=== PATIENT | female | born 2000 | race Caucasian/White ===

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

== ENCOUNTER 2020-07-31 06:22 | Day surgery (SDC) | payer MEDICAID ==
[2020-07-31] MEDS ORDERED: VIBRAMYCIN 100 MG*** 100 MG in Dextrose 5%/Water IV Soln. 100ML PLUS BAG 100 ML IV SCH (07:00)
[2020-07-31] MEDS ORDERED: Lactated Ringers 1,000 ML IV SCH (07:00)
[2020-07-31] MEDS ORDERED: DIPRIVAN 200 MG/20 ML IV ONE (07:00)
[2020-07-31] MEDS ORDERED: SUBLIMAZE 100 MCG/2 ML ONE (07:01)
[2020-07-31] MEDS ORDERED: Versed 2 MG/2 ML Injection ONE ×2 (07:01→07:10)
[2020-07-31] MEDS ORDERED: Zofran 4 MG/2 ML VIAL ONE (07:02)
[2020-07-31] MEDS ORDERED: Decadron 4 MG INJ ONE (07:02)
[2020-07-31] MEDS ORDERED: Versed 2 MG/2 ML Injection IV ONE (07:12)
[2020-07-31] MEDS ORDERED: Lactated Ringers 1,000 ML IV ONE (07:44)
[2020-07-31] MEDS ORDERED: SODIUM CHLORIDE MINI IV ONE (07:45)
[2020-07-31] MEDS ORDERED: TRANEXAMIC ACID IV ONE (07:45)
[2020-07-31 09:01] VITALS: BP 123/63; PULSE 71; O2SAT 99
--- NOTE | 2020-08-04 10:30 | OP ---
SURGERY DATE/TIME: 07/31/2020 0719 PREOPERATIVE DIAGNOSIS: Suspected molar at approximately 11 weeks gestation by dates. POSTOPERATIVE DIAGNOSIS: Suspected molar at approximately 11 weeks gestation by dates. PROCEDURE: Suction D&C. SURGEON: Angelo Bell D.O. LAUNDRY WORKER: Sharon Rocha, surgical orderly. ANESTHESIA: General. ESTIMATED BLOOD LOSS: Minimal. COMPLICATIONS: None. INDICATIONS: The risks, benefits, indications and alternatives of the procedure were reviewed with the patient prior to procedure. The patient understood the risk of infection, bleeding, bowel injury, bladder injury, ureteral injury, uterine perforation, thromboembolic disorder, pelvic infection, vaginal bleeding that can be associated with this procedure however desires to have this procedure as a possible means to alleviate her current medical condition. DESCRIPTION OF PROCEDURE AND FINDINGS: At this time the patient is taken to the operating room, given general sedation, placed in the dorsal lithotomy position, prepped and draped in the usual sterile fashion. A weighted speculum is then placed in the patient's vagina and the anterior lip of the cervix is grasped with a single tooth tenaculum. Endocervical dilators were advanced through the endocervical canal as a means to dilate the cervix. A #7 curved suction Vacurette was then placed into the fundus of the uterus where the suction machine was turned on retrieving the products of conception without complication. After retrieval of the uterine content the suction machine was turned off. It was removed from the uterine cavity where a curette was then subsequently placed into the uterine fundus where curettage was performed in all quadrants of the uterus retrieving a mild amount of tissue at this time. The suction Vacurette was then placed one last time in the fundus of the uterus where the suction machine was turned on with minimal tissue at this time. From this point all instruments were then removed from the patient's vaginal region. There was minimal bleeding noted from the cervix at this time. The patient was then taken out of the dorsal lithotomy position, was taken out of anesthesia and was then taken to the recovery room in stable condition. All instruments and laps were accounted for x2.
== END 2020-07-31 09:10 | disposition home or self-care (01) ==
LOC: SDC 06:22 → EDSTATUS 17:44
PROVIDERS: ATTEND Obstetrics & Gynecology
DX: O02.0 Blighted ovum and nonhydatidiform mole (principal)
CPT/HCPCS: J1100; J2250; J2405; J2704; J3010

== ENCOUNTER 2022-02-03 18:45 | Emergency (ER) | payer MEDICAID ==
--- NOTE | 2022-02-03 18:49 | ERPHSYRPT ---
- History of Present Illness Time Seen by Provider: 02/03/22 18:49 Historian: patient, family Exam Limitations: no limitations Physician History: This is a 21-year-old white female that presents with central, substernal nonradiating heavy chest pressure without radiation and no associated shortness of breath that began approximately 3 hours prior to arrival. She has anxiety issues as well as borderline personality disorder. She took her buspirone without effect and was concerned that she may have a heart issue. Timing/Duration: today Activities at Onset: none Quality: pressure Location: substernal, central Chest Pain Radiation: no radiation Severity of Pain-Max: moderate Severity of Pain-Current: mild Modifying Factors: Improves With: nothing Associated Symptoms: denies symptoms Prior Chest Pain/Cardiac Workup: no prior chest pain, no prior cardiac workup, non-cardiac Nitro Today/Relief: no nitro taken today Aspirin Treatment Today: no aspirin today Allergies/Adverse Reactions: amoxicillin Allergy (Verified 02/03/22 18:46) Hives ciprofloxacin Allergy (Verified 02/03/22 18:46) Hives peanut Allergy (Verified 02/03/22 18:46) Hives sulfamethoxazole [From Bactrim] Allergy (Verified 02/03/22 18:46) Hives trimethoprim [From Bactrim] Allergy (Verified 02/03/22 18:46) Hives Home Medications: Bupropion HCl 150 mg Sr [Wellbutrin SR 150 MG] 1 tab PO DAILY 02/03/22 [History] Buspirone HCl 1 tab PO TID 02/03/22 [History] norgestimate-ethinyl estradioL [Tri-Sprintec Tablet] 1 tab PO DAILY 02/03/22 [History] Hx Tetanus, Diphtheria Vaccination/Date Given: No Hx Influenza Vaccination/Date Given: No Hx Pneumococcal Vaccination/Date Given: No Travel Risk - International Travel Have you traveled outside of the country in past 3 weeks: No - Coronavirus Screening Are you exhibiting any of the following symptoms?: No Close contact with a COVID-19 positive Pt in past 14-21 Days: No - Review of Systems Constitutional: No Symptoms Eyes: No Symptoms Ears, Nose, & Throat: No Symptoms Respiratory: No Symptoms Cardiac: Chest Pain Abdominal/Gastrointestinal: No Symptoms Genitourinary Symptoms: No Symptoms Musculoskeletal: No Symptoms Skin: No Symptoms Neurological: No Symptoms Psychological: No Symptoms Endocrine: No Symptoms Hematologic/Lymphatic: No Symptoms Immunological/Allergic: No Symptoms All Other Systems: Reviewed and Negative - Past Medical History Pertinent Past Medical History: Yes Neurological History: No Pertinent History ENT History: No Pertinent History Cardiac History: No Pertinent History Respiratory History: No Pertinent History Endocrine Medical History: No Pertinent History Musculoskeletal History: No Pertinent History GI Medical History: No Pertinent History History: No Pertinent History Psycho-Social History: Anxiety, Depression Female Reproductive Disorders: No Pertinent History Other Medical History: boarderline personality disorder - Past Surgical History Past Surgical History: No Neuro Surgical History: No Pertinent History Cardiac: No Pertinent History Respiratory: No Pertinent History Gastrointestinal: No Pertinent History Genitourinary: No Pertinent History Musculoskeletal: No Pertinent History Female Surgical History: No Pertinent History Other Surgical History: Molar blighted ovum - Social History Smoking Status: Never smoker How long have you smoked: 1 year Exposure to second hand smoke: No Alcohol Use: None Drug Use: none Patient Lives Alone: Yes Significant Family History: no pertinent family hx - Nursing Vital Signs Nursing Vital Signs: Initial Vital Signs Temperature 98.7 F 02/03/22 18:48 Pulse Rate 96 H 02/03/22 18:48 Respiratory Rate 20 02/03/22 18:48 Blood Pressure 105/89 02/03/22 18:48 O2 Sat by Pulse Oximetry 99 02/03/22 18:48 Pain Scale Pain Intensity 7 - Physical Exam General Appearance: no apparent distress, alert, anxiety Eye Exam: PERRL/EOMI, eyes nml inspection Ears, Nose, Throat Exam: normal ENT inspection, moist mucous membranes Neck Exam: normal inspection, non-tender, supple, full range of motion Respiratory Exam: normal breath sounds, lungs clear, airway intact, No chest tenderness, No respiratory distress Cardiovascular Exam: regular rate/rhythm, normal heart sounds, normal peripheral pulses Gastrointestinal/Abdomen Exam: soft, normal bowel sounds, No tenderness Pelvic Exam: not done Rectal Exam: not done Back Exam: normal inspection, normal range of motion, No CVA tenderness, No vertebral tenderness Extremity Exam: normal inspection, normal range of motion, pelvis stable Neurologic Exam: alert, oriented x 3, cooperative, hand ii cutter II-XII nml as tested, normal mood/affect, nml cerebellar function, nml station & gait, sensation nml Skin Exam: normal color, warm, dry Lymphatic Exam: No adenopathy SpO2 Interpretation: normal - Course Nursing assessment & vital signs reviewed: Yes EKG Interpreted by Me: RATE (72), Sinus Rhythm, Right [place] Deviation, NORMAL INTERVALS, NORMAL QRS, NORMAL ST-T, Other (No acute ischemic changes.) Ordered Tests: Active Orders 24 hr Category Date Time Status Box Blank Machine Feeder STAT Care 02/03/22 19:02 Active EKG-ER Only STAT Care 02/03/22 19:01 Active IV Insertion STAT Care 02/03/22 19:30 Active Pulse Oximetry (ED) STAT Care 02/03/22 19:01 Active CHEST 1 VIEW (PORTABLE) Stat Exams 02/03/22 19:01 Taken CBC W DIFF Stat Lab 02/03/22 19:00 Completed CMP Stat Lab 02/03/22 19:00 Completed D-DIMER QUANTITATIVE Stat Lab 02/03/22 19:00 Completed HCG,QUALITATIVE URINE Stat Lab 02/03/22 19:44 Completed TROPONIN Q3H Lab 02/03/22 19:00 Completed TROPONIN Q3H Lab 02/03/22 22:15 Ordered TROPONIN Q3H Lab 02/04/22 01:15 Ordered TROPONIN Q3H Lab 02/04/22 04:15 Ordered TROPONIN Q3H Lab 02/04/22 07:15 Ordered Urine Triage Profile Stat Lab 02/03/22 19:44 Completed Lab/Rad Data: Laboratory Result Diagrams 02/03/22 19:00 02/03/22 19:00 Laboratory Results 02/03/22 02/03/22 02/03/22 Range/Units 19:44 19:44 19:00 WBC (4.0-10.5) x10^3/uL RBC (4.1-5.4) x10^6/uL Hgb (12.0-16.0) g/dL Hct (35-47) % MCV (78-100) fL MCH (26-32) pg MCHC (32-36) g/dL RDW (11.5-14.0) % Plt Count (150-450) x10^3/uL MPV (7.5-11.0) fL Gran % (36.0-66.0) % Immature Gran % (Auto) (0.00-0.4) % Nucleat RBC Rel Count (0.00-0.1) % Eos # (Auto) (0-0.5) x10^3/uL Immature Gran # (Auto) (0.00-0.03) x10^3u/L Absolute Lymphs (auto) (1.0-4.6) x10^3/uL Absolute Monos (auto) (0.0-1.3) x10^3/uL Absolute Nucleated RBC (0.00-0.01) x10^3u/L Lymphocytes % (24.0-44.0) % Monocytes % (0.0-12.0) % Eosinophils % (0.00-5.0) % Basophils % (0.0-0.4) % Absolute Granulocytes (1.4-6.9) x10^3/uL Basophils # (0-0.4) x10^3/uL D-Dimer (0.0-0.50) mg/L Sodium (137-145) mmol/L Potassium (3.5-5.1) mmol/L Chloride (98-107) mmol/L Carbon Dioxide (22-30) mmol/L Anion Gap (5-15) MEQ/L BUN (7-17) mg/dL Creatinine (0.52-1.04) mg/dL Estimated GFR ML/MIN Glucose (74-106) mg/dL Calcium (8.4-10.2) mg/dL Total Bilirubin (0.2-1.3) mg/dL AST (14-36) U/L ALT (0-35) U/L Alkaline Phosphatase (38-126) U/L Troponin I < 0.012 (0.000-0.034) ng/mL Serum Total Protein (6.3-8.2) g/dL Albumin (3.5-5.0) g/dL Urine HCG, Qual NEGATIVE (Negative) Urine Opiates Level NEGATIVE (NEGATIVE) Ur Methadone NEGATIVE (NEGATIVE) Urine Barbiturates NEGATIVE (NEGATIVE) Ur Phencyclidine (PCP) NEGATIVE (NEGATIVE) Urine Amphetamine NEGATIVE (NEGATIVE) U Benzodiazepine Level NEGATIVE (NEGATIVE) Urine Cocaine NEGATIVE (NEGATIVE) Urine Marijuana (THC) NEGATIVE (NEGATIVE) 02/03/22 02/03/22 02/03/22 Range/Units 19:00 19:00 19:00 WBC 7.4 (4.0-10.5) x10^3/uL RBC 4.48 (4.1-5.4) x10^6/uL Hgb 14.4 (12.0-16.0) g/dL Hct 42.6 (35-47) % MCV 95.1 (78-100) fL MCH 32.1 H (26-32) pg MCHC 33.8 (32-36) g/dL RDW 12.4 (11.5-14.0) % Plt Count 387 (150-450) x10^3/uL MPV 9.5 (7.5-11.0) fL Gran % 60.2 (36.0-66.0) % Immature Gran % (Auto) 0.4 (0.00-0.4) % Nucleat RBC Rel Count 0.0 (0.00-0.1) % Eos # (Auto) 0.19 (0-0.5) x10^3/uL Immature Gran # (Auto) 0.03 (0.00-0.03) x10^3u/L Absolute Lymphs (auto) 2.01 (1.0-4.6) x10^3/uL Absolute Monos (auto) 0.68 (0.0-1.3) x10^3/uL Absolute Nucleated RBC 0.00 (0.00-0.01) x10^3u/L Lymphocytes % 27.1 (24.0-44.0) % Monocytes % 9.2 (0.0-12.0) % Eosinophils % 2.6 (0.00-5.0) % Basophils % 0.5 (0.0-0.4) % Absolute Granulocytes 4.48 (1.4-6.9) x10^3/uL Basophils # 0.04 (0-0.4) x10^3/uL D-Dimer 0.48 (0.0-0.50) mg/L Sodium 140 (137-145) mmol/L Potassium 4.0 (3.5-5.1) mmol/L Chloride 106 (98-107) mmol/L Carbon Dioxide 21 L (22-30) mmol/L Anion Gap 16.1 H (5-15) MEQ/L BUN 9 (7-17) mg/dL Creatinine 0.68 (0.52-1.04) mg/dL Estimated GFR > 60.0 ML/MIN Glucose 77 (74-106) mg/dL Calcium 9.7 (8.4-10.2) mg/dL Total Bilirubin 0.50 (0.2-1.3) mg/dL AST 24 (14-36) U/L ALT 15 (0-35) U/L Alkaline Phosphatase 78 (38-126) U/L Troponin I (0.000-0.034) ng/mL Serum Total Protein 8.1 (6.3-8.2) g/dL Albumin 5.0 (3.5-5.0) g/dL Urine HCG, Qual (Negative) Urine Opiates Level (NEGATIVE) Ur Methadone (NEGATIVE) Urine Barbiturates (NEGATIVE) Ur Phencyclidine (PCP) (NEGATIVE) Urine Amphetamine (NEGATIVE) U Benzodiazepine Level (NEGATIVE) Urine Cocaine (NEGATIVE) Urine Marijuana (THC) (NEGATIVE) - Progress Progress: improved, re-examined Air Movement: good Progress Note: 02/03/22 21:07 Chest x-ray shows no acute cardiopulmonary process. Counseled pt/family regarding: lab results, diagnosis, need for follow-up, rad results - Departure Departure Disposition: Home Clinical Impression: Cardiac chest pain Condition: Stable Critical Care Time: No Referrals: PING BARNARD MD [Primary Care Provider] - Follow up/PCP as directed Additional Instructions: Follow-up with your primary care physician for further evaluation management.
[2022-02-03 19:21] LABS: Absolute Neutrophil Ct (ANC) 4.48 x10^3/uL (1.4-6.9); Basophil (Absolute #) 0.04 x10^3/uL (0-0.4); Eosinophil % 2.6 % (0.00-5.0); Eosinophil (Absolute #) 0.19 x10^3/uL (0-0.5); Hematocrit 42.6 % (35-47); Hemoglobin 14.4 g/dL (12.0-16.0); Lymphocyte (Absolute #) 2.01 x10^3/uL (1.0-4.6); Lymphocytes % 27.1 % (24.0-44.0); Mean Cell Volume 95.1 fL (78-100); Mean Corpuscular Hemoglobin 32.1 pg (26-32); Mean Corpuscular Hgb Concent. 33.8 g/dL (32-36); Mean Platelet Volume 9.5 fL (7.5-11.0); Monocyte (Absolute #) 0.68 x10^3/uL (0.0-1.3); Monocytes % 9.2 % (0.0-12.0); Neutrophil % 60.2 % (36.0-66.0); Platelet Count 387 x10^3/uL (150-450); Red Blood Count 4.48 x10^6/uL (4.1-5.4); Red Cell Distribution Width 12.4 % (11.5-14.0); White Blood Count 7.4 x10^3/uL (4.0-10.5)
[2022-02-03 20:14] LABS: Amphetamine,Urine NEGATIVE (NEGATIVE); Benzodiazepine,Urine NEGATIVE (NEGATIVE); Cocaine,Urine NEGATIVE (NEGATIVE); Methadone,Urine NEGATIVE (NEGATIVE); Opiate,Urine NEGATIVE (NEGATIVE); PCP,Urine NEGATIVE (NEGATIVE); THC,Urine NEGATIVE (NEGATIVE)
[2022-02-03 20:17] LABS: Barbiturate,Urine NEGATIVE (NEGATIVE)
[2022-02-03 20:32] LABS: ALKALINE PHOSPHATASE 78 U/L (38-126); ANION GAP 16.1 MEQ/L (5-15); BLOOD UREA NITROGEN 9 mg/dL (7-17); CHLORIDE 106 mmol/L (98-107); Calcium 9.7 mg/dL (8.4-10.2); Carbon Dioxide 21 mmol/L (22-30); Creatinine 1 0.68 mg/dL (0.52-1.04); EST GLOMERULAR FILTRATION RATE > 60.0 ML/MIN; Glucose 77 mg/dL (74-106); SGOT/AST 24 U/L (14-36); SGPT/ALT 15 U/L (0-35); SODIUM 140 mmol/L (137-145); Total Protein 8.1 g/dL (6.3-8.2)
[2022-02-03 21:17] VITALS: BP 102/67; PULSE 79; O2SAT 99
== END 2022-02-03 21:15 | disposition home or self-care (01) ==
LOC: ED 18:45
DX: R07.9 Chest pain, unspecified (principal); Z79.899 Other long term (current) drug therapy
CPT/HCPCS: 36000; 36415; 71045; 80053; 80307; 81025; 84484; 85025; 85379; 93005; 93041; 94760; 99284

== ENCOUNTER 2022-11-15 23:21 | Emergency (ER) | payer MEDICAID ==
--- NOTE | 2022-11-15 23:35 | ERPHSYRPT ---
- History of Present Illness Time Seen by Provider: 11/16/22 00:13 Source: patient Exam Limitations: no limitations Physician History: This is a 22-year-old white female patient of Dr. Barnard who presents with 3-day history of sore throat followed by 2-day history of a cough and 1 day history of left earache. Patient has no known exposure to individuals with similar symptoms. Patient denies nausea vomiting and diarrhea. Timing/Duration: worse Cough Quality/Degree: mild, dry cough Possible Cause: no prior episodes Modifying Factors: Improves With: nothing Associated Symptoms: cough, earache (Left), sore throat, No shortness of breath Allergies/Adverse Reactions: amoxicillin Allergy (Verified 11/15/22 23:50) Hives ciprofloxacin Allergy (Verified 11/15/22 23:50) Hives peach Allergy (Verified 11/15/22 23:51) Swelling of Face peanut Allergy (Verified 11/15/22 23:50) Hives sulfamethoxazole [From Bactrim] Allergy (Verified 11/15/22 23:50) Hives trimethoprim [From Bactrim] Allergy (Verified 11/15/22 23:50) Hives Hx Tetanus, Diphtheria Vaccination/Date Given: No Hx Influenza Vaccination/Date Given: No Hx Pneumococcal Vaccination/Date Given: No Travel Risk - International Travel Have you traveled outside of the country in past 3 weeks: No - Coronavirus Screening Are you exhibiting any of the following symptoms?: Yes Symptoms: Cough: New Onset Close contact with a COVID-19 positive Pt in past 14-21 Days: No - Vaccine Status Have you recieved a Covid-19 vaccination: Yes 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 - Vaccination Dates Date of 2cond Vaccination (if applicable): 2020 - Review of Systems Constitutional: No Symptoms Eyes: No Symptoms Ears, Nose, & Throat: Ear Pain (Left), Throat Pain Respiratory: Cough Cardiac: No Symptoms Abdominal/Gastrointestinal: No Symptoms Genitourinary Symptoms: No Symptoms Musculoskeletal: No Symptoms Skin: No Symptoms Neurological: No Symptoms Psychological: No Symptoms Endocrine: No Symptoms Hematologic/Lymphatic: No Symptoms Immunological/Allergic: No Symptoms All Other Systems: Reviewed and Negative - Past Medical History Pertinent Past Medical History: Yes Neurological History: No Pertinent History ENT History: No Pertinent History Cardiac History: No Pertinent History Respiratory History: No Pertinent History Endocrine Medical History: No Pertinent History Musculoskeletal History: No Pertinent History GI Medical History: No Pertinent History History: No Pertinent History Psycho-Social History: Anxiety, Depression Female Reproductive Disorders: No Pertinent History Other Medical History: boarderline personality disorder - Past Surgical History Past Surgical History: No Neuro Surgical History: No Pertinent History Cardiac: No Pertinent History Respiratory: No Pertinent History Gastrointestinal: No Pertinent History Genitourinary: No Pertinent History Musculoskeletal: No Pertinent History Female Surgical History: No Pertinent History Other Surgical History: Molar blighted ovum - Social History Smoking Status: Never smoker How long have you smoked: 1 year Exposure to second hand smoke: No Alcohol Use: None Drug Use: none Patient Lives Alone: Yes Significant Family History: no pertinent family hx - Nursing Vital Signs Nursing Vital Signs: Initial Vital Signs Temperature 97.9 F 11/15/22 23:37 Pulse Rate 62 11/15/22 23:37 Respiratory Rate 16 11/15/22 23:37 Blood Pressure 123/84 11/15/22 23:37 O2 Sat by Pulse Oximetry 98 11/15/22 23:37 Pain Scale Pain Intensity 7 - Physical Exam General Appearance: no apparent distress, alert, anxiety Eye Exam: PERRL/EOMI, eyes nml inspection Ears, Nose, Throat Exam: moist mucous membranes, TM abnormal (L) (Mild redness), pharyngeal erythema (Mild) Neck Exam: normal inspection, non-tender, supple, full range of motion Respiratory Exam: normal breath sounds, lungs clear, airway intact, No chest tenderness, No respiratory distress Cardiovascular Exam: regular rate/rhythm, normal heart sounds, normal peripheral pulses Gastrointestinal/Abdomen Exam: soft, normal bowel sounds, No tenderness Pelvic Exam: not done Rectal Exam: not done Back Exam: normal inspection, normal range of motion, No CVA tenderness, No vertebral tenderness Extremity Exam: normal inspection, normal range of motion, pelvis stable Neurologic Exam: alert, oriented x 3, cooperative, orthotics assistant II-XII nml as tested, normal mood/affect, nml cerebellar function, nml station & gait Skin Exam: normal color, warm, dry Lymphatic Exam: No adenopathy SpO2 Interpretation: normal - Course Nursing assessment & vital signs reviewed: Yes Ordered Tests: Medication Summary Discontinued Medications Generic Name Dose Route Start Last Admin Trade Name Freq PRN Reason Stop Dose Admin Azithromycin 500 mg 11/16/22 00:32 11/16/22 00:40 Azithromycin 250 Mg Tablet PO 11/16/22 00:33 500 mg STAT ONE Administration Azithromycin Confirm 11/16/22 00:39 Azithromycin 250 Mg Tablet Administered 11/16/22 00:40 Dose 500 mg .ROUTE .STK-MED ONE Prednisone 20 mg 11/16/22 00:32 11/16/22 00:40 Prednisone 20 Mg Tablet PO 11/16/22 00:33 20 mg STAT ONE Administration Prednisone Confirm 11/16/22 00:39 Prednisone 20 Mg Tablet Administered 11/16/22 00:40 Dose 20 mg .ROUTE .STK-MED ONE Lab/Rad Data: Laboratory Results 11/15/22 Range/Units 00:25 Influenza Type A Ag NEGATIVE (NEGATIVE) Influenza Type B Ag NEGATIVE (NEGATIVE) RSV (PCR) NEGATIVE (NEGATIVE) SARS-CoV-2 (PCR) NEGATIVE (NEGATIVE) Group A Strep Antibody NOT DETECTED (NEGATIVE) Medical Desision Making - Discussion of managment Reviewed:: Test results Agreed on:: Treatment plan - Diagnostic Testing Diagnostic test were ordered, analyzed, and reviewed by me: Yes - Risk of complications The pt has a mod risk of morbidity or mortality based on: Need for prescription drug management - Departure Departure Disposition: Home Clinical Impression: Left otitis media Condition: Stable Critical Care Time: No Referrals: PING BARNARD MD [Primary Care Provider] - Follow up/PCP as directed Instructions: Ear Infections (Otitis Media) in Adults (DC) Additional Instructions: Drink plenty of fluids. Use Tylenol and ibuprofen for fever and pain control. Take your antibiotics and steroids as prescribed. Prescriptions: Prednisone 10 mg [Deltasone 10 mg] 10 mg PO TID #12 tablet Azithromycin 250 mg [Zithromax 250 MG TABLET] 250 mg PO ZPACK #4 tablet
[2022-11-16] MEDS ORDERED: DELTASONE 20 MG PO ONE (00:32)
[2022-11-16] MEDS ORDERED: Zithromax 250 MG TABLET PO ONE (00:32)
[2022-11-16] MEDS ORDERED: DELTASONE 20 MG ONE (00:39)
[2022-11-16] MEDS ORDERED: Zithromax 250 MG TABLET ONE (00:39)
[2022-11-16 00:56] LABS: Group A Strep NOT DETECTED (NEGATIVE)
[2022-11-16 01:01] VITALS: BP 114/55; PULSE 62; O2SAT 99
[2022-11-16 01:08] LABS: INFLUENZA A NEGATIVE (NEGATIVE); INFLUENZA B NEGATIVE (NEGATIVE); RESPIRATORY SYNCTIAL VIRUS NEGATIVE (NEGATIVE); SARS-CoV-2 Xpert Express NEGATIVE (NEGATIVE)
== END 2022-11-16 01:26 | disposition home or self-care (01) ==
LOC: ED 23:21
DX: H66.92 Otitis media, unspecified, left ear (principal); J02.9 Acute pharyngitis, unspecified; R05.1 Acute cough; Z79.52 Long term (current) use of systemic steroids
CPT/HCPCS: 0241U; 87651; 99283; A9270-GY

== ENCOUNTER 2023-06-16 16:59 | Emergency (ER) | payer MEDICAID ==
[2023-06-16 17:15] VITALS: RESP 16; TEMP 97.5
--- NOTE | 2023-06-16 17:24 | ERPHSYRPT ---
- History of Present Illness Time Seen by Provider: 06/16/23 17:20 Source: patient Exam Limitations: no limitations Patient Subjective Stated Complaint: Pt reports she has been experiencing tooth pain for approx two days. Pain is located right side bottom teeth, described as throbbing. Has tried to be seen by dentist but can not get into dentist to be seen until 07/07/23. Triage Nursing Assessment: Pt alert and oriented x3. Respirations easy/no nlabored. Skin w/p/d. No obvious swelling to jaw. Pt rates pain 03/17. Physician History: This is a 22-year-old white female patient of Dr. Huntley who presents with 2-day history of right lower molar pain that is increased despite the use of ibuprofen at home. She did contact her dentist and they cannot see her till 07/07/2023. Patient describes the pain as aching and throbbing. Patient is allergic to amoxicillin. She does not recall ever taking Keflex or cephalexin. The dentist office is supposed to call her if there is a cancellation. Timing/Duration: gradual onset Severity: moderate Prearrival Treatment: over the counter meds Modifying Factors: Improves With: other (Hurts to chew) Associated Symptoms: tooth pain, No swollen glands, No sore throat, No difficulty swallowing Allergies/Adverse Reactions: amoxicillin Allergy (Verified 06/16/23 17:09) Hives ciprofloxacin Allergy (Verified 06/16/23 17:09) Hives peach Allergy (Verified 06/16/23 17:09) Swelling of Face peanut Allergy (Verified 06/16/23 17:09) Hives sulfamethoxazole [From Bactrim] Allergy (Verified 06/16/23 17:09) Hives trimethoprim [From Bactrim] Allergy (Verified 06/16/23 17:09) Hives Home Medications: Fluoxetine HCl 20 mg [Prozac 20 MG] 20 mg PO DAILY 06/16/23 [History] clonazePAM [Clonazepam] 0.5 tab PO BID 06/16/23 [History] Hx Tetanus, Diphtheria Vaccination/Date Given: Yes Hx Influenza Vaccination/Date Given: Yes Hx Pneumococcal Vaccination/Date Given: No Travel Risk - International Travel Have you traveled outside of the country in past 3 weeks: No - Coronavirus Screening Are you exhibiting any of the following symptoms?: No Close contact with a COVID-19 positive Pt in past 14-21 Days: No - Vaccine Status Have you recieved a Covid-19 vaccination: Yes 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 - Review of Systems Constitutional: No Symptoms Eyes: No Symptoms Ears, Nose, & Throat: Other (Dental pain) Respiratory: No Symptoms Cardiac: No Symptoms Abdominal/Gastrointestinal: No Symptoms Genitourinary Symptoms: No Symptoms Musculoskeletal: No Symptoms Skin: No Symptoms Neurological: No Symptoms Psychological: No Symptoms Endocrine: No Symptoms Hematologic/Lymphatic: No Symptoms Immunological/Allergic: No Symptoms All Other Systems: Reviewed and Negative - Past Medical History Pertinent Past Medical History: Yes Neurological History: No Pertinent History ENT History: No Pertinent History Cardiac History: No Pertinent History Respiratory History: No Pertinent History Endocrine Medical History: No Pertinent History Musculoskeletal History: No Pertinent History GI Medical History: No Pertinent History History: No Pertinent History Psycho-Social History: Anxiety, Bipolar, Depression Female Reproductive Disorders: No Pertinent History Other Medical History: boarderline personality disorder - Past Surgical History Past Surgical History: Yes Neuro Surgical History: No Pertinent History Cardiac: No Pertinent History Respiratory: No Pertinent History Gastrointestinal: No Pertinent History Genitourinary: No Pertinent History Musculoskeletal: No Pertinent History Female Surgical History: Dilation & Curettage Other Surgical History: Molar blighted ovum - Social History Smoking Status: Never smoker How long have you smoked: 1 year Exposure to second hand smoke: No Alcohol Use: None Drug Use: none Patient Lives Alone: No Significant Family History: no pertinent family hx - Female History Hx Last Menstrual Period: ended two days ago Hx Now: No - Nursing Vital Signs Nursing Vital Signs: Initial Vital Signs Temperature 97.5 F 06/16/23 17:05 Pulse Rate 96 H 06/16/23 17:05 Respiratory Rate 16 06/16/23 17:05 Blood Pressure 117/71 06/16/23 17:05 O2 Sat by Pulse Oximetry 98 06/16/23 17:05 Pain Scale Pain Intensity 8 - Physical Exam General Appearance: no apparent distress, alert Eye Exam: bilateral eye: normal inspection, PERRL, EOMI Ear Exam: bilateral ear: auricle normal Nasal Exam: normal inspection Throat Exam: dental tenderness (Right lower molars), moist mucus membranes, No voice changes Neck Exam: normal inspection, non-tender, supple, full range of motion, trachea midline, No lymphadenopathy (R), No lymphadenopathy (L) Cardiovascular/Respiratory Exam: chest non-tender, no respiratory distress Abdominal Exam: non-tender Neurologic Exam: alert, oriented x 3, cooperative, ccu nurse II-XII nml as tested, normal mood/affect, nml cerebellar function, nml station & gait, sensation nml Skin Exam: normal color, warm, dry SpO2 Interpretation: normal SpO2: 98 O2 Delivery: Room Air - Course Nursing assessment & vital signs reviewed: Yes - Progress Progress: unchanged Progress Note: 06/16/23 17:33 This patient's medical issue is 1 of low complexity. Level complex in the work- up performed is based on review of the patient's past medical history, review the patient's medication list, review the patient's drug allergy list, history of present illness and physical findings on examination. The work-up in this patient does not require laboratory radiographic studies. Patient will be given clindamycin and ibuprofen here in the emergency department and we will remotely send a prescription of clindamycin and [place] 5/325 to her pharmacy. Patient is instructed to also continue using ibuprofen Counseled pt/family regarding: diagnosis, need for follow-up Medical Desision Making - Diagnostic Testing Diagnostic test were ordered, analyzed, and reviewed by me: No - Risk of complications The pt has a mod risk of morbidity or mortality based on: Need for prescription drug management - Departure Departure Disposition: Home Clinical Impression: Pain, dental Condition: Stable Critical Care Time: No [facility] - Follow up/PCP as directed Additional Instructions: Drink plenty of fluids. Take ibuprofen 600 mg with food 3 times a day for the next 5 days. Take your antibiotics as prescribed. After you complete your Percocet 5/325 medication, alternate your ibuprofen with 650 mg Tylenol 3 times a day. Contact your dentist for definitive care and to see if you can get your appointment moved up. Prescriptions: Oxycodone HCl/Acetaminophen [Percocet 5-325 mg Tablet] 1 each PO Q8H PRN PRN #6 tablet MDD 3 PRN Reason: Moderate To Severe Pain Clindamycin HCl 150 mg [Cleocin 150 mg Capsule] 2 cap PO QID #56 cap
[2023-06-16] MEDS ORDERED: MOTRIN 600 MG PO ONE (17:40)
[2023-06-16] MEDS ORDERED: CLEOCIN 150 MG CAPSULE PO ONE (17:40)
[2023-06-16] MEDS ORDERED: CLEOCIN 150 MG CAPSULE ONE (17:46)
[2023-06-16] MEDS ORDERED: MOTRIN 600 MG ONE (17:46)
[2023-06-16 17:54] VITALS: BP 109/58; PULSE 66; O2SAT 99
== END 2023-06-16 17:59 | disposition home or self-care (01) ==
LOC: ED 16:59
DX: K08.89 Other specified disorders of teeth and supporting structures (principal); Z79.891 Long term (current) use of opiate analgesic; Z79.899 Other long term (current) drug therapy
CPT/HCPCS: 99282; A9270-GY

== ENCOUNTER 2024-01-29 18:38 | Emergency (ER) | payer OTHER ==
[2024-01-29 19:01] VITALS: TEMP 97
--- NOTE | 2024-01-29 19:45 | ERPHSYRPT ---
- History of Present Illness Time Seen by Provider: 01/29/24 19:20 Source: patient Exam Limitations: no limitations Patient Subjective Stated Complaint: pt here for a cough and sob since , no fever, was negative for covid. she 6-7 weeks Triage Nursing Assessment: pt alert, walked in, resp easy, no cough at present time, took resp treament at home, no edema noted, moves all ext well Physician History: This is a 23-year-old white female patient of Dr. Barnard and is 6 to 7 weeks . She has appointment to see Dr. Bell tomorrow, 01/30/2024 regarding management. In the last 4 days she has had cough and congestion. She went to the urgent care center which is closed and therefore she came to the emergency department because she was not sure what she could and could not take being . Patient is allergic to amoxicillin, ciprofloxacin and sulfa antibiotics. Patient denies chest pain. She denies shortness of breath. She has had no fever. She denies nausea vomiting and diarrhea symptoms. Patient has taken 3 COVID test which have all been negative in the last few days. Patient's vital signs are stable and her room air oxygen saturation level is 98 to 99%. During the history and physical exam, the patient did not cough once. Timing/Duration: day(s) (4) Cough Quality/Degree: mild, dry cough Possible Cause: occasional episodes Modifying Factors: Improves With: coughing Associated Symptoms: cough, No fever, No chest pain/soreness, No nasal congestion, No nasal drainage, No shortness of breath, No sore throat Allergies/Adverse Reactions: amoxicillin Allergy (Verified 01/29/24 19:03) Hives ciprofloxacin Allergy (Verified 01/29/24 19:03) Hives peach Allergy (Verified 01/29/24 19:03) Swelling of Face peanut Allergy (Verified 01/29/24 19:03) Hives sulfamethoxazole [From Bactrim] Allergy (Verified 01/29/24 19:03) Hives trimethoprim [From Bactrim] Allergy (Verified 01/29/24 19:03) Hives Home Medications: No122/Iron/Folic Acid [ Multi Tablet] 1 each PO DAILY 01/29/24 [History] Hx Tetanus, Diphtheria Vaccination/Date Given: No Hx Influenza Vaccination/Date Given: No Hx Pneumococcal Vaccination/Date Given: No Immunizations Up to Date: Yes Travel Risk - International Travel Have you traveled outside of the country in past 3 weeks: No - Emerging Infectious Disease Are you exhibiting symptoms associated with any current EIDs: Yes Symptoms: Cough: New Onset - Review of Systems Constitutional: No Symptoms Eyes: No Symptoms Ears, Nose, & Throat: No Symptoms Respiratory: Cough Cardiac: No Symptoms Abdominal/Gastrointestinal: No Symptoms Genitourinary Symptoms: No Symptoms Musculoskeletal: No Symptoms Skin: No Symptoms Neurological: No Symptoms Psychological: No Symptoms Endocrine: No Symptoms Hematologic/Lymphatic: No Symptoms Immunological/Allergic: No Symptoms All Other Systems: Reviewed and Negative - Past Medical History Pertinent Past Medical History: Yes Neurological History: No Pertinent History ENT History: No Pertinent History Cardiac History: No Pertinent History Respiratory History: No Pertinent History Endocrine Medical History: No Pertinent History Musculoskeletal History: No Pertinent History GI Medical History: No Pertinent History History: No Pertinent History Psycho-Social History: Anxiety, Bipolar, Depression Female Reproductive Disorders: No Pertinent History Other Medical History: boarderline personality disorder - Past Surgical History Past Surgical History: Yes Neuro Surgical History: No Pertinent History Cardiac: No Pertinent History Respiratory: No Pertinent History Gastrointestinal: No Pertinent History Genitourinary: No Pertinent History Musculoskeletal: No Pertinent History Female Surgical History: Dilation & Curettage Other Surgical History: Molar blighted ovum Significant Family History: no pertinent family hx - Female History Hx Last Menstrual Period: may Hx Now: Yes Gestational Age: 6 - Social History Smoking Status: Former smoker How long have you smoked: 1 year Exposure to second hand smoke: No Alcohol Use: None Drug Use: none Patient Lives Alone: No - Social Determinants of Health Will the patient participate in the screening: Yes Do you worry about a steady place to live?: No Do you have any problems with any of the following?: No known problems In the past 12 months,have you had to go without utilities?: No Transportation Issues: No Has anyone in your support network made you feel unsafe?: No Have you or anyone in your house had to go without enough: No - Nursing Vital Signs Nursing Vital Signs: Initial Vital Signs Temperature 97.0 F 01/29/24 19:00 Pulse Rate 98 H 01/29/24 19:00 Respiratory Rate 18 01/29/24 19:00 Blood Pressure 114/76 01/29/24 19:00 O2 Sat by Pulse Oximetry 100 01/29/24 19:00 Pain Scale Pain Intensity 4 - Physical Exam General Appearance: no apparent distress, alert, anxiety Eye Exam: PERRL/EOMI, eyes nml inspection Ears, Nose, Throat Exam: normal ENT inspection, moist mucous membranes Neck Exam: normal inspection, non-tender, supple, full range of motion Respiratory Exam: normal breath sounds, respiratory distress, airway intact, No chest tenderness, No lungs clear Cardiovascular Exam: regular rate/rhythm, normal heart sounds, normal peripheral pulses Gastrointestinal/Abdomen Exam: No tenderness Pelvic Exam: not done Rectal Exam: not done Back Exam: normal inspection, normal range of motion, No CVA tenderness, No vertebral tenderness Extremity Exam: normal inspection, normal range of motion, pelvis stable Neurologic Exam: alert, oriented x 3, cooperative, blade operator II-XII nml as tested, normal mood/affect, nml cerebellar function, nml station & gait, sensation nml Skin Exam: normal color, warm, dry Lymphatic Exam: No adenopathy SpO2 Interpretation: normal SpO2: 100 O2 Delivery: Room Air - Course Nursing assessment & vital signs reviewed: Yes - Progress Progress: unchanged Air Movement: good Progress Note: 01/29/24 19:42 My medical decision making and the assignment of low complexity to this patient's medical issue today is based on review of the patient's past medical history, review the patient's medication list, review the patient drug allergy list, history present illness and physical findings on examination. The patient and I discussed ordering viral swabs and group A strep swab. Based on our discussion, the patient declined. What we did was discussed what she can and cannot take to help with nasal congestion and cough while being . We also discussed remotely sending a prescription for Keflex to treat any bacterial infection Blood Culture(s) Obtained: No Antibiotics given: No Counseled pt/family regarding: diagnosis, need for follow-up Medical Desision Making - Diagnostic Testing Diagnostic test were ordered, analyzed, and reviewed by me: No - Risk of complications The pt has a mod risk of morbidity or mortality based on: Need for prescription drug management - Departure Departure Disposition: Home Clinical Impression: Cough, URI (upper respiratory infection) Condition: Stable Critical Care Time: No Referrals: PING BARNARD MD [Primary Care Provider] - Follow up/PCP as directed Additional Instructions: Drink plenty of fluids. You may take benadryl, guaifenesin and dextromethorphan for your congestion symptoms. I have remotely sent a prescription for Keflex to your pharmacy if your symptoms worsen despite treatment. Keep your appointment to see your sap solution manager consultant tomorrow, 01/30/2024. Prescriptions: Cephalexin Mh 500 mg [Keflex 500 mg] 500 mg PO TID #15 cap
[2024-01-29] MEDS: Robitussin 100 MG/5 ML PO ONE (19:50)
[2024-01-29 20:00] VITALS: BP 121/67; PULSE 84; RESP 16; O2SAT 97
== END 2024-01-29 20:00 | disposition home or self-care (01) ==
LOC: ED 18:38
DX: O99.511 Diseases of the respiratory system complicating pregnancy, first trimester (principal); J06.9 Acute upper respiratory infection, unspecified; Z3A.01 Less than 8 weeks gestation of pregnancy; R05.1 Acute cough
CPT/HCPCS: 99281; A9270-GY

== ENCOUNTER 2024-02-24 05:52 | Day surgery (SDC) | payer OTHER ==
[2024-02-24] MEDS ORDERED: Pepcid 20 MG VIAL IV ONE (06:42)
[2024-02-24] MEDS ORDERED: CLINDAMYCIN-D5W 900 MG/50 ML*** 900 MG/50 ML BAG IV ONE (06:42)
[2024-02-24] MEDS ORDERED: Reglan 10 MG/2 ML ONE (06:42)
[2024-02-24] MEDS ORDERED: Lactated Ringers 1,000 ML IV ONE ×2 (06:42→09:55)
[2024-02-24] MEDS: Lactated Ringers 1,000 ML IV SCH (06:45)
[2024-02-24] MEDS: CLINDAMYCIN-D5W 900 MG/50 ML*** 900 MG/50 ML BAG IV SCH (06:54)
[2024-02-24] MEDS: Reglan 10 MG/2 ML IV ONE (07:12)
[2024-02-24] MEDS: Pepcid 20 MG VIAL IV ONE (07:12)
[2024-02-24] MEDS ORDERED: DIPRIVAN 200 MG/20 ML IV ONE (08:29)
[2024-02-24] MEDS ORDERED: SUBLIMAZE 100 MCG/2 ML ONE ×2 (08:30→09:10)
[2024-02-24] MEDS ORDERED: Zofran 4 MG/2 ML VIAL ONE ×2 (08:30→09:13)
[2024-02-24] MEDS ORDERED: Decadron 4 MG INJ ONE (08:30)
[2024-02-24] MEDS ORDERED: Xylocaine-Mpf 2% 5 Ml Vial ONE (08:30)
[2024-02-24] MEDS ORDERED: Hydromorphone 1 mg/ml Injection ONE (09:10)
[2024-02-24] MEDS ORDERED: TORAdol 30 mg Injection ONE (09:19)
[2024-02-24 10:26] VITALS: RESP 16
[2024-02-24 10:47] VITALS: TEMP 97.5
[2024-02-24 11:23] VITALS: BP 105/63; PULSE 88; O2SAT 100
--- NOTE | 2024-02-27 20:28 | OP ---
SURGERY DATE/TIME: 02/24/2024 2310 - [id number] PREOPERATIVE DIAGNOSIS: Missed at approximately 9 weeks and 2 days gestation. POSTOPERATIVE DIAGNOSIS: Missed at approximately 9 weeks and 2 days gestation. PROCEDURE: Suction dilatation and curettage. SURGEON: Kenadll Bell D.O. FINANCIAL SERVICES REP: Celina. ANESTHESIA: General. QUANTITATIVE BLOOD LOSS: Minimal. COMPLICATIONS: None. FINDINGS: The risks, benefits, indications, along with alternatives of the procedure were reviewed with patient prior to procedure. Patient understood the risk of infection, bleeding, bowel injury, bladder injury, uterine perforation, pelvic infection, thromboembolic disorder associated with the surgery and desires to have the surgery as a possible means to alleviate her current medical condition. DESCRIPTION OF PROCEDURE AND FINDINGS: At this point, patient was taken to the operating room, given general sedation, placed in the dorsal lithotomy position, prepped and draped in the usual sterile fashion. A weighted speculum was then placed in the patient's vagina, and the anterior lip of the cervix was grasped with a single tooth tenaculum. Endocervical dilators were advanced through the endocervical canal as a means to dilate the cervix. A #8 curved suction evacuator was then placed into the endocervical region toward the fundal region where the suction machine was turned on. The first suctioning retrieving a moderate amount of products of conception. From this point, after complete suctioning, the instrument was removed and a curette was then placed into the fundus of the uterus and curettage was performed in all quadrants of the uterus retrieving the remaining uterine content tissue. From this point, hemostasis was obtained. From this point, all instruments were removed from the patient's vaginal region. The patient was then taken out of the dorsal lithotomy position and was taken out of anesthesia, was then taken to the recovery room in stable condition. All instruments and laps were accounted for x2.
== END 2024-02-24 11:25 | disposition home or self-care (01) ==
LOC: SDC 05:52
PROVIDERS: ATTEND Obstetrics & Gynecology
DX: O02.1 Missed abortion (principal)
CPT/HCPCS: 36415; 86901; J1100; J1170; J1885; J2405; J2704; J3010

== ENCOUNTER 2024-11-19 10:21 | Emergency (ER) | payer OTHER ==
--- NOTE | 2024-11-19 10:28 | ERPHSYRPT ---
- History of Present Illness Time Seen by Provider: 11/19/24 10:28 Historian: patient, family Exam Limitations: no limitations Physician History: This is a 24-year-old white female patient who arrives by private vehicle accompanied by her spouse with the complaint of chest pain described as anterior chest pressure without radiation that occurred today at work. Patient is approximately 24 weeks . On 10/24/2024 the OB ultrasound shows a single, viable intrauterine that at that time measured approximately 21 weeks. She also states that she was tachycardic with a heart rate in the 140s based on her Fitbit numbers during a spell of the chest pain and pressure associated with dizziness, profuse sweating. Patient states she has a tendency to drop her blood sugar. However, the patient states she had eaten a significant meal 45 minutes prior to her chest pain/pressure symptoms. She denies shortness of breath. She has no abdominal pain. She has had no vaginal bleeding or vaginal discharge. She has not had these constellation of symptoms during this . Patient herself has no documented history of coronary artery disease or clotting disorders. However, both her grandfather and father have coronary artery disease and have clotting disorders per her report. heart is in this patient is in the 150s. Patient's amusement ride inspector is Dr. Bell. Timing/Duration: today Activities at Onset: activity (Her usual activity at work) Quality: pressure Location: substernal, central Chest Pain Radiation: no radiation Severity of Pain-Max: moderate Severity of Pain-Current: mild Modifying Factors: Improves With: nothing Associated Symptoms: diaphoresis, weakness, No nausea, No vomiting, No abdominal pain, No shortness of breath Prior Chest Pain/Cardiac Workup: no prior chest pain, no prior cardiac workup Nitro Today/Relief: no nitro taken today Aspirin Treatment Today: no aspirin today, 81 mg x 1 (Patient is on 1 baby aspirin per day) Allergies/Adverse Reactions: amoxicillin Allergy (Verified 11/19/24 10:23) Hives ciprofloxacin Allergy (Verified 11/19/24 10:23) Hives peach Allergy (Verified 11/19/24 10:23) Swelling of Face sulfamethoxazole [From Bactrim] Allergy (Verified 11/19/24 10:23) Hives trimethoprim [From Bactrim] Allergy (Verified 11/19/24 10:23) Hives Home Medications: Aspirin 81 gm Chew [Baby Aspirin 81 mg Chew] 81 mg PO QAM 11/19/24 [History] Omeprazole 20 mg PO DAILY 11/19/24 [History] Pnv No.95/Ferrous Fum/Folic AC [ Caplet] 1 each PO DAILY 11/19/24 [History] Hx Tetanus, Diphtheria Vaccination/Date Given: No Hx Influenza Vaccination/Date Given: No Hx Pneumococcal Vaccination/Date Given: No Travel Risk - International Travel Have you traveled outside of the country in past 3 weeks: No - Emerging Infectious Disease Are you exhibiting symptoms associated with any current EIDs: No Symptoms: Cough: New Onset - Review of Systems Constitutional: No Symptoms Eyes: No Symptoms Ears, Nose, & Throat: No Symptoms Respiratory: No Symptoms Cardiac: Chest Pain (Describe as a anterior pressure) Abdominal/Gastrointestinal: No Symptoms Genitourinary Symptoms: No Symptoms Musculoskeletal: No Symptoms Skin: No Symptoms Neurological: No Symptoms Psychological: No Symptoms Endocrine: No Symptoms Hematologic/Lymphatic: No Symptoms Immunological/Allergic: No Symptoms All Other Systems: Reviewed and Negative - Past Medical History Pertinent Past Medical History: Yes Neurological History: No Pertinent History ENT History: No Pertinent History Cardiac History: No Pertinent History Respiratory History: No Pertinent History Endocrine Medical History: No Pertinent History Musculoskeletal History: No Pertinent History GI Medical History: No Pertinent History History: No Pertinent History Psycho-Social History: Anxiety, Bipolar, Depression Female Reproductive Disorders: No Pertinent History Other Medical History: boarderline personality disorder - Past Surgical History Past Surgical History: Yes Neuro Surgical History: No Pertinent History Cardiac: No Pertinent History Respiratory: No Pertinent History Gastrointestinal: No Pertinent History Genitourinary: No Pertinent History Musculoskeletal: No Pertinent History Female Surgical History: Dilation & Curettage Other Surgical History: Molar blighted ovum. D&Cx2 Significant Family History: no pertinent family hx - Female History Hx Last Menstrual Period: december - Social History Smoking Status: Current every day smoker How long have you smoked: 1 year Exposure to second hand smoke: No Drug Use: none - Social Determinants of Health Will the patient participate in the screening: Yes Do you worry about a steady place to live?: No In the past 12 months,have you had to go without utilities?: No Transportation Issues: No Has anyone in your support network made you feel unsafe?: No Have you or anyone in your house had to go w/o enough food: No - Nursing Vital Signs Nursing Vital Signs: Initial Vital Signs Pulse Rate 69 11/19/24 10:30 Respiratory Rate 23 11/19/24 10:30 Blood Pressure 111/61 11/19/24 10:30 O2 Sat by Pulse Oximetry 97 11/19/24 10:30 Pain Scale Pain Intensity 6 - Physical Exam General Appearance: no apparent distress, alert, anxiety Eye Exam: PERRL/EOMI, eyes nml inspection Ears, Nose, Throat Exam: normal ENT inspection, moist mucous membranes Neck Exam: normal inspection, non-tender, supple, full range of motion Respiratory Exam: normal breath sounds, lungs clear, airway intact, No chest tenderness, No respiratory distress Cardiovascular Exam: regular rate/rhythm, normal heart sounds, normal peripheral pulses Gastrointestinal/Abdomen Exam: soft, normal bowel sounds, other (Heart tones in the 150s beats per minute), No tenderness Pelvic Exam: not done Rectal Exam: not done Back Exam: normal inspection, normal range of motion, No CVA tenderness, No v ertebral tenderness Extremity Exam: normal inspection, normal range of motion, pelvis stable Neurologic Exam: alert, oriented x 3, cooperative, 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 No acute ischemic changes on today's twelve-lead EKG.) Ordered Tests: Active Orders 24 hr Category Date Time Status Graduate Teacher Education STAT Care 11/19/24 10:27 Active EKG-ER Only STAT Care 11/19/24 10:26 Active IV Insertion STAT Care 11/19/24 10:26 Active Pulse Oximetry (ED) STAT Care 11/19/24 10:26 Active CBC W DIFF Stat Lab 11/19/24 10:43 Completed CMP Stat Lab 11/19/24 10:43 Completed CULTURE,URINE Stat Lab 11/19/24 11:38 Received D-DIMER QUANTITATIVE Stat Lab 11/19/24 10:43 Completed MAGNESIUM Stat Lab 11/19/24 10:43 Completed PROTIME WITH INR Stat Lab 11/19/24 10:43 Completed PTT Stat Lab 11/19/24 10:43 Completed TROPONIN Q4H Lab 11/19/24 10:43 Completed TROPONIN Q4H Lab 11/19/24 14:30 Ordered TROPONIN Q4H Lab 11/19/24 18:30 Ordered UA W/RFX UR CULTURE Stat Lab 11/19/24 11:38 Completed Lab/Rad Data: Laboratory Result Diagrams 11/19/24 10:43 11/19/24 10:43 Laboratory Results 11/19/24 11/19/24 11/19/24 Range/Units 11:38 10:56 10:43 WBC (3.98-10.04) x10^3/uL RBC (3.93-5.22) x10^6/uL Hgb (11.2-15.7) g/dL Hct (34.1-44.9) % MCV (79.4-94.8) fL MCH (25.6-32.2) pg MCHC (32.2-35.5) g/dL RDW (11.7-14.4) % Plt Count (182-369) x10^3/uL MPV (9.4-12.3) fL Gran % (34.0-71.1) % Immature Gran % (Auto) (0.001-0.429) % Nucleat RBC Rel Count (0.00-0.2) % Eos # (Auto) (0.04-0.36) x10^3/uL Immature Gran # (Auto) (0.001-0.031) x10^3u/L Absolute Lymphs (auto) (1.18-3.74) x10^3/uL Absolute Monos (auto) (0.24-0.86) x10^3/uL Absolute Nucleated RBC (0.00-0.012) x10^3u/L Lymphocytes % (19.3-51.7) % Monocytes % (4.7-12.5) % Eosinophils % (0.7-5.8) % Basophils % (0.1-1.2) % Absolute Granulocytes (1.56-6.13) x10^3/uL Basophils # (0.01-0.08) x10^3/uL PT (9.4-12.5) SECONDS INR (0.8-3.0) APTT (25.1-36.5) SECONDS D-Dimer (0.0-0.50) mg/L Sodium (135-145) mmol/L Potassium (3.5-5.1) mmol/L Chloride (98-107) mmol/L Carbon Dioxide (22-30) mmol/L Anion Gap (5-15) MEQ/L BUN (7-17) mg/dL Creatinine (0.52-1.04) mg/dL Estimated GFR ML/MIN Glucose (74-106) mg/dL Calcium (8.4-10.2) mg/dL Magnesium (1.6-2.3) mg/dL Total Bilirubin (0.2-1.3) mg/dL AST (14-36) U/L ALT (0-35) U/L Alkaline Phosphatase (38-126) U/L Troponin I < 0.012 (0.000-0.033) ng/mL Serum Total Protein (6.3-8.2) g/dL Albumin (3.5-5.0) g/dL Urine Color Yellow (Yellow) Urine Appearance Cloudy A (Clear) Urine pH 7.0 (4.6-8.0) Ur Specific Wallace 1.010 (1.005-1.030) Urine Protein Negative (Negative) Urine Glucose (UA) Negative (Negative) mg/dL Urine Ketones Negative (Negative) Urine Blood Negative (Negative) Urine Nitrite Negative (Negative) Urine Bilirubin Negative (Negative) Urine Urobilinogen 0.2 (0.2) mg/dL Ur Leukocyte Esterase Negative (Negative) U Hyaline Cast (Auto) 6-10 A (0-2) /LPF Urine Microscopic RBC 3-5 (0-5) /HPF Urine Microscopic WBC 6-10 A (0-5) /HPF Ur Epithelial Cells Rare (None Seen) /HPF Urine Bacteria Few A (None Seen) /HPF Urine Culture Reflexed YES (NO) Influenza Type A Ag NEGATIVE (NEGATIVE) Influenza Type B Ag NEGATIVE (NEGATIVE) RSV (PCR) NEGATIVE (NEGATIVE) SARS-CoV-2 (PCR) NEGATIVE (NEGATIVE) 11/19/24 11/19/24 11/19/24 Range/Units 10:43 10:43 10:43 WBC 9.7 (3.98-10.04) x10^3/uL RBC 3.55 L (3.93-5.22) x10^6/uL Hgb 11.5 (11.2-15.7) g/dL Hct 33.6 L (34.1-44.9) % MCV 94.6 (79.4-94.8) fL MCH 32.4 H (25.6-32.2) pg MCHC 34.2 (32.2-35.5) g/dL RDW 13.2 (11.7-14.4) % Plt Count 264 (182-369) x10^3/uL MPV 9.7 (9.4-12.3) fL Gran % 74.7 H (34.0-71.1) % Immature Gran % (Auto) 0.8 H (0.001-0.429) % Nucleat RBC Rel Count 0.0 (0.00-0.2) % Eos # (Auto) 0.15 (0.04-0.36) x10^3/uL Immature Gran # (Auto) 0.08 H (0.001-0.031) x10^3u/L Absolute Lymphs (auto) 1.50 (1.18-3.74) x10^3/uL Absolute Monos (auto) 0.71 (0.24-0.86) x10^3/uL Absolute Nucleated RBC 0.00 (0.00-0.012) x10^3u/L Lymphocytes % 15.4 L (19.3-51.7) % Monocytes % 7.3 (4.7-12.5) % Eosinophils % 1.5 (0.7-5.8) % Basophils % 0.3 (0.1-1.2) % Absolute Granulocytes 7.26 H (1.56-6.13) x10^3/uL Basophils # 0.03 (0.01-0.08) x10^3/uL PT 9.9 (9.4-12.5) SECONDS INR 0.90 (0.8-3.0) APTT 24.7 L (25.1-36.5) SECONDS D-Dimer 0.59 H (0.0-0.50) mg/L Sodium 139 (135-145) mmol/L Potassium 3.4 L (3.5-5.1) mmol/L Chloride 107 (98-107) mmol/L Carbon Dioxide 19 L (22-30) mmol/L Anion Gap 16.3 H (5-15) MEQ/L BUN 7 (7-17) mg/dL Creatinine 0.40 L (0.52-1.04) mg/dL Estimated GFR 141.7 ML/MIN Glucose 92 (74-106) mg/dL Calcium 8.9 (8.4-10.2) mg/dL Magnesium 1.9 (1.6-2.3) mg/dL Total Bilirubin 0.40 (0.2-1.3) mg/dL AST 27 (14-36) U/L ALT 22 (0-35) U/L Alkaline Phosphatase 55 (38-126) U/L Troponin I (0.000-0.033) ng/mL Serum Total Protein 6.7 (6.3-8.2) g/dL Albumin 4.0 (3.5-5.0) g/dL Urine Color (Yellow) Urine Appearance (Clear) Urine pH (4.6-8.0) Ur Specific Wallace (1.005-1.030) Urine Protein (Negative) Urine Glucose (UA) (Negative) mg/dL Urine Ketones (Negative) Urine Blood (Negative) Urine Nitrite (Negative) Urine Bilirubin (Negative) Urine Urobilinogen (0.2) mg/dL Ur Leukocyte Esterase (Negative) U Hyaline Cast (Auto) (0-2) /LPF Urine Microscopic RBC (0-5) /HPF Urine Microscopic WBC (0-5) /HPF Ur Epithelial Cells (None Seen) /HPF Urine Bacteria (None Seen) /HPF Urine Culture Reflexed (NO) Influenza Type A Ag (NEGATIVE) Influenza Type B Ag (NEGATIVE) RSV (PCR) (NEGATIVE) SARS-CoV-2 (PCR) (NEGATIVE) - Progress Progress: improved, re-examined Air Movement: good Progress Note: 11/19/24 10:51 My medical decision making and the assignment of moderate complexity of this patient's medical issue today is based on review of the patient's past medical history, review of the patient's medication list, review the patient drug allergy list, history of present illness and physical findings on examination. The workup in this patient includes placement of a intravenous line, CBC, CMP, magnesium level, troponin level, twelve-lead EKG, D-dimer level, urinalysis, v iral swabs. Differential diagnosis includes but is not limited to viral illness, hypoglycemia, urinary tract infection, dehydration, electrolyte abnormalities, arrhythmia, myocardial infarction, pulmonary embolus 11/19/24 12:21 Interpreted the patient's laboratory data results. Based on the laboratory data results, the patient did have a slightly elevated D-dimer level at 0.59. I do think the patient's risk of a pulmonary embolus is low. She is and this value may be slightly elevated. The patient, her and I all discussed the risks benefits and alternatives to her elevated D-dimer level. Patient has opted not to undergo CT scan of the chest with contrast. She will sign a refusal of care/treatment form. She does not have chest pain at this time. She has no shortness of breath. Her room air oxygenation level is 99%. In addition, her urinalysis does show a few white cells and bacteria present. However, her nitrite and leukocyte Estrace levels are negative. A culture is being performed and together, the patient and I decided to wait for the culture result to determine whether or not the patient needs treatment. Blood Culture(s) Obtained: No Antibiotics given: No Counseled pt/family regarding: lab results, diagnosis, need for follow-up Medical Desision Making - Independent Historian Additional History obtained from: Spouse - Diagnostic Testing Diagnostic test were ordered, analyzed, and reviewed by me: Yes - Risk of complications Low Risk: Low risk of morbidity from additional dx testing or treatment - Departure Departure Disposition: Home Clinical Impression: Chest pressure Condition: Stable Critical Care Time: No Referrals: STEPHANIE BELL DO [Primary Care Provider] - Follow up/PCP as directed Additional Instructions: Drink plenty of fluids. Make sure you are tolerating a diet well. Call your amusement ride inspector and primary care provider today, 11/19/2024, to make arrangements for follow-up appointment for further evaluation and management. Continue your vitamins and medication as prescribed.
[2024-11-19 10:33] VITALS: TEMP 97.2
[2024-11-19 10:37] LABS: Absolute Neutrophil Ct (ANC) 7.26 x10^3/uL (1.56-6.13); BASOPHIL % 0.3 % (0.1-1.2); Basophil (Absolute #) 0.03 x10^3/uL (0.01-0.08); Eosinophil % 1.5 % (0.7-5.8); Eosinophil (Absolute #) 0.15 x10^3/uL (0.04-0.36); Hematocrit 33.6 % (34.1-44.9); Hemoglobin 11.5 g/dL (11.2-15.7); IMMATURE GRAN # 0.08 x10^3u/L (0.001-0.031); IMMATURE GRAN % 0.8 % (0.001-0.429); Lymphocytes % 15.4 % (19.3-51.7); Mean Cell Volume 94.6 fL (79.4-94.8); Mean Corpuscular Hemoglobin 32.4 pg (25.6-32.2); Mean Corpuscular Hgb Concent. 34.2 g/dL (32.2-35.5); Mean Platelet Volume 9.7 fL (9.4-12.3); Monocyte (Absolute #) 0.71 x10^3/uL (0.24-0.86); Monocytes % 7.3 % (4.7-12.5); Neutrophil % 74.7 % (34.0-71.1); Platelet Count 264 x10^3/uL (182-369); Red Blood Count 3.55 x10^6/uL (3.93-5.22); Red Cell Distribution Width 13.2 % (11.7-14.4); White Blood Count 9.7 x10^3/uL (3.98-10.04)
[2024-11-19 10:58] LABS: ANION GAP 16.3 MEQ/L (5-15); BILIRUBIN,TOTAL 0.4 mg/dL (0.2-1.3); Calcium 8.9 mg/dL (8.4-10.2); Creatinine 1 0.4 mg/dL (0.52-1.04); EST GLOMERULAR FILTRATION RATE 141.7 ML/MIN; MAGNESIUM 1.9 mg/dL (1.6-2.3); Potassium 3.4 mmol/L (3.5-5.1); Total Protein 6.7 g/dL (6.3-8.2)
[2024-11-19 11:09] LABS: INR 0.9 (0.8-3.0); PROTIME 9.9 SECONDS (9.4-12.5); PTT 24.7 SECONDS (25.1-36.5)
[2024-11-19 11:34] LABS: INFLUENZA A NEGATIVE (NEGATIVE); INFLUENZA B NEGATIVE (NEGATIVE); RESPIRATORY SYNCTIAL VIRUS NEGATIVE (NEGATIVE); SARS-CoV-2 Xpert Express NEGATIVE (NEGATIVE)
[2024-11-19 11:41] VITALS: O2SAT 99
[2024-11-19 12:08] LABS: Appearance Cloudy (Clear); Bacteria Few /HPF (None Seen); Bilirubin Negative (Negative); Blood Negative (Negative); Epithelial Cells Rare /HPF (None Seen); Glucose, Urine Negative (Negative); Ketones Negative (Negative); Leukocyte Esterase Negative (Negative); Nitrite Negative (Negative); Protein,Urine Dip Negative (Negative); Urobilinogen 0.2 mg/dL (0.2)
[2024-11-19 12:10] VITALS: BP 87/59; PULSE 67; RESP 16
== END 2024-11-19 12:32 | disposition home or self-care (01) ==
LOC: ED 10:21
DX: R07.9 Chest pain, unspecified (principal); R42 Dizziness and giddiness; Z79.899 Other long term (current) drug therapy; Z72.0 Tobacco use; Z33.1 Pregnant state, incidental
CPT/HCPCS: 0241U; 36415; 80053; 81001; 83735; 84484; 85025; 85379; 85610; 85730; 87086; 93005; 93041; 94760; 99284

== ENCOUNTER 2024-12-15 12:13 | Emergency (ER) | payer OTHER ==
--- NOTE | 2024-12-15 12:15 | ERPHSYRPT ---
- History of Present Illness Time Seen by Provider: 12/15/24 12:14 Source: patient, family Exam Limitations: no limitations Physician History: This is a 24-year-old white female patient of Dr. Barnard who arrives by private vehicle because of significant dysuria. Patient is approximately 28 to 29 weeks . This is based on review of the OB ultrasound dates of 10/24/2024. Approximately 1 and half weeks ago, the patient was placed on amoxicillin to treat an upper respiratory infection. She then began having the urinary tract infection symptoms of dysuria and frequency and was started on nitrofurantoin antibiotics. She has been on this medication for 2 days. She has not had any abdominal pain and has only had some intermittent hematuria with urinating. After starting the nitrofurantoin, she noticed generalized mild rash. Patient does not have abdominal pain. She does not have chest pain. She is not short of breath. The heart tones taken by the nurse today is approximately 141 bpm. Patient has a history of gastroesophageal reflux disease. She is here secondary to her symptoms of dysuria and frequency as well as this new generalized light rash. Timing/Duration: day(s) (2 to 3 days) Activites at Onset: none Onset Location: other (Generalized rash and associated dysuria and urinary frequency) Severity of Pain-Max: none Severity of Pain-Current: none Prior abdominal problems: none Sexual intercourse history: non-contributory Modifying Factors: Improves With: urinating Associated Symptoms: dysuria, urinary frequency, Allergies/Adverse Reactions: ciprofloxacin Allergy (Verified 11/19/24 10:23) Hives peach Allergy (Verified 11/19/24 10:23) Swelling of Face sulfamethoxazole [From Bactrim] Allergy (Verified 11/19/24 10:23) Hives trimethoprim [From Bactrim] Allergy (Verified 11/19/24 10:23) Hives Home Medications: Nitrofurantoin Macro 100 mg [Macrobid 100MG Capsule] 100 mg PO BID 12/15/24 [History] Omeprazole 20 mg PO DAILY 12/15/24 [History] Pnv 119/Iron Fum/Folic Acid [ 19 Tablet] 1 ea DAILY 12/15/24 [History] Hx Tetanus, Diphtheria Vaccination/Date Given: No Hx Influenza Vaccination/Date Given: No Hx Pneumococcal Vaccination/Date Given: No Travel Risk - International Travel Have you traveled outside of the country in past 3 weeks: No - Emerging Infectious Disease Are you exhibiting symptoms associated with any current EIDs: No Symptoms: Cough: New Onset - Review of Systems Constitutional: No Symptoms Eyes: No Symptoms Ears, Nose, & Throat: No Symptoms Respiratory: No Symptoms Cardiac: No Symptoms Abdominal/Gastrointestinal: No Symptoms Genitourinary Symptoms: Dysuria, Frequency, Musculoskeletal: No Symptoms Skin: No Symptoms, Rash (Generalized) Neurological: No Symptoms Psychological: No Symptoms Endocrine: No Symptoms Hematologic/Lymphatic: No Symptoms Immunological/Allergic: No Symptoms All Other Systems: Reviewed and Negative - Past Medical History Pertinent Past Medical History: Yes Neurological History: No Pertinent History ENT History: No Pertinent History Cardiac History: No Pertinent History Respiratory History: No Pertinent History Endocrine Medical History: No Pertinent History Musculoskeletal History: No Pertinent History GI Medical History: No Pertinent History History: No Pertinent History Psycho-Social History: Anxiety, Bipolar, Depression Female Reproductive Disorders: No Pertinent History Other Medical History: boarderline personality disorder - Past Surgical History Past Surgical History: Yes Neuro Surgical History: No Pertinent History Cardiac: No Pertinent History Respiratory: No Pertinent History Gastrointestinal: No Pertinent History Genitourinary: No Pertinent History Musculoskeletal: No Pertinent History Female Surgical History: Dilation & Curettage Other Surgical History: Molar blighted ovum. D&Cx2 Significant Family History: no pertinent family hx - Female History Hx Last Menstrual Period: december - Social History Smoking Status: Current every day smoker How long have you smoked: 1 year Exposure to second hand smoke: No Drug Use: none - Social Determinants of Health Will the patient participate in the screening: Yes Do you worry about a steady place to live?: No In the past 12 months,have you had to go without utilities?: No Transportation Issues: No Has anyone in your support network made you feel unsafe?: No Have you or anyone in your house had to go w/o enough food: No - Nursing Vital Signs Nursing Vital Signs: Initial Vital Signs Temperature 97.0 F 12/15/24 12:27 Pulse Rate 92 H 12/15/24 12:27 Respiratory Rate 21 12/15/24 12:27 Blood Pressure 114/72 12/15/24 12:27 O2 Sat by Pulse Oximetry 96 12/15/24 12:27 Pain Scale Pain Intensity 0 - Physical Exam General Appearance: no apparent distress, alert Eye Exam: PERRL/EOMI, eyes nml inspection Ears, Nose, Throat Exam: normal ENT inspection, moist mucous membranes Neck Exam: normal inspection, non-tender, supple, full range of motion Respiratory Exam: normal breath sounds, lungs clear, airway intact, No chest tenderness, No respiratory distress Cardiovascular Exam: regular rate/rhythm, normal heart sounds, normal peripheral pulses Gastrointestinal/Abdomen Exam: soft, normal bowel sounds, No tenderness Pelvic Exam: not done Rectal Exam: not done Back Exam: normal inspection, normal range of motion, No CVA tenderness, No vertebral tenderness Extremity Exam: normal inspection, normal range of motion, pelvis stable Neurologic Exam: alert, oriented x 3, cooperative, brim cutter II-XII nml as tested, normal mood/affect, nml cerebellar function, nml station & gait, sensation nml Skin Exam: rash (Generalized fine light pink rash that is not raised. They are on the patient's chest abdominal wall back bilateral lower extremities. The only areas that itch are her feet. There is no petechiae.) Lymphatic Exam: No adenopathy SpO2 Interpretation: normal O2 Delivery: Room Air - Course Nursing assessment & vital signs reviewed: Yes Ordered Tests: Active Orders 24 hr Category Date Time Status BMP Stat Lab 12/15/24 13:06 Completed CBC W DIFF Stat Lab 12/15/24 13:06 Completed UA W/RFX UR CULTURE Stat Lab 12/15/24 12:33 Completed Lab/Rad Data: Laboratory Result Diagrams 12/15/24 13:06 12/15/24 13:06 Laboratory Results 12/15/24 12/15/24 12/15/24 Range/Units 13:06 13:06 12:33 WBC 9.9 (3.98-10.04) x10^3/uL RBC 3.39 L (3.93-5.22) x10^6/uL Hgb 10.8 L (11.2-15.7) g/dL Hct 31.9 L (34.1-44.9) % MCV 94.1 (79.4-94.8) fL MCH 31.9 (25.6-32.2) pg MCHC 33.9 (32.2-35.5) g/dL RDW 13.2 (11.7-14.4) % Plt Count 288 (182-369) x10^3/uL MPV 10.0 (9.4-12.3) fL Gran % 79.4 H (34.0-71.1) % Immature Gran % (Auto) 0.7 H (0.001-0.429) % Nucleat RBC Rel Count 0.0 (0.00-0.2) % Eos # (Auto) 0.22 (0.04-0.36) x10^3/uL Immature Gran # (Auto) 0.07 H (0.001-0.031) x10^3u/L Absolute Lymphs (auto) 1.15 L (1.18-3.74) x10^3/uL Absolute Monos (auto) 0.57 (0.24-0.86) x10^3/uL Absolute Nucleated RBC 0.00 (0.00-0.012) x10^3u/L Lymphocytes % 11.6 L (19.3-51.7) % Monocytes % 5.8 (4.7-12.5) % Eosinophils % 2.2 (0.7-5.8) % Basophils % 0.3 (0.1-1.2) % Absolute Granulocytes 7.87 H (1.56-6.13) x10^3/uL Basophils # 0.03 (0.01-0.08) x10^3/uL Sodium 137 (135-145) mmol/L Potassium 3.3 L (3.5-5.1) mmol/L Chloride 107 (98-107) mmol/L Carbon Dioxide 18 L (22-30) mmol/L Anion Gap 15.5 H (5-15) MEQ/L BUN 5 L (7-17) mg/dL Creatinine 0.40 L (0.52-1.04) mg/dL Estimated GFR 141.7 ML/MIN Glucose 177 H (74-106) mg/dL Calcium 8.9 (8.4-10.2) mg/dL Urine Color Dark Yellow A (Yellow) Urine Appearance Turbid A (Clear) Urine pH 7.0 (4.6-8.0) Ur Specific [place] 1.025 (1.005-1.030) Urine Protein Trace A (Negative) Urine Glucose (UA) >=1000 A (Negative) mg/dL Urine Ketones Negative (Negative) Urine Blood Negative (Negative) Urine Nitrite Negative (Negative) Urine Bilirubin Negative (Negative) Urine Urobilinogen 1.0 A (0.2) mg/dL Ur Leukocyte Esterase Negative (Negative) U Hyaline Cast (Auto) NONE SEEN (0-2) /LPF Urine Microscopic RBC 3-5 (0-5) /HPF Urine Microscopic WBC 6-10 A (0-5) /HPF Ur Epithelial Cells Moderate A (None Seen) /HPF Urine Bacteria Rare A (None Seen) /HPF Urine Culture Reflexed NO (NO) - Progress Progress: re-examined Air Movement: good Progress Note: 12/15/24 12:58 My medical decision making and the assignment of low complexity to this patient's medical issue today is based on review of the patient's past medical history, review the patient's medication list, reviewed patient drug allergy list, history of present illness and physical findings on examination. The workup in this patient includes CBC, BMP and urinalysis. Differential diagnosis includes but is not limited to persistent urinary tract infection, contact dermatitis, medication allergic reaction I interpreted the urinalysis that was drawn today. There is no leukocyte esterase. There is no nitrite. The patient white blood cell count in her urine is 6-10 and there is rare bacteria. I also reviewed the patient's culture and sensitivity from 12/12/2024 which shows contaminated specimen of skin lefty. I will interpret the CBC and BMP results when they return. Clinically, the patient does have a urinary tract infection with dysuria and urinary frequency. However the culture and sensitivity of the urine specimen from 12/12/2024 does not support this. Her urinalysis result today does not necessarily support the diagnosis of urinary tract infection. However she is and she is symptomatic. 12/15/24 13:41 The patient and I had a long discussion about treating her symptoms of urinary frequency and dysuria and about covering her with an antibiotic. She was told by her svp operations to go ahead and take Azo [id number] product. She only took 1 dose yesterday and 1 dose this morning. I told her to follow the instructions on the bottle but only uses it a total of 3 times a day for 2 days including what was taken yesterday. She was also instructed to take 500 mg orally 4 times a day while awake of acetaminophen for pain control. She also wants to go ahead and be treated with Keflex. She is aware that the cultures may come back negative and she may need to stop that antibiotic. There is no evidence of dehydration in this patient with a normal renal function and negative ketones in her urine. Blood Culture(s) Obtained: No Antibiotics given: Yes Counseled pt/family regarding: lab results, diagnosis, need for follow-up Medical Desision Making - Diagnostic Testing Diagnostic test were ordered, analyzed, and reviewed by me: Yes - Risk of complications Low Risk: Low risk of morbidity from additional dx testing or treatment - Departure Departure Disposition: Home Clinical Impression: Urinary frequency, Dysuria, Bacteriuria with pyuria Condition: Stable Critical Care Time: No Referrals: PING BARNARD MD [Primary Care Provider, [facility]] - Follow up/PCP as directed Additional Instructions: Drink plenty of fluids. Use Tylenol 500 mg orally 4 times a day while awake. Use the over the counter product Azo as instructed by your sv[employer] operations. Take the antibiotics as prescribed. On 12/17/2024, call your svp operations to make a follow-up appointment to be seen in the next 3 to 5 days. Use your prescription Zofran that your sv[employer] operations provided you but make certain you take the Zofran half hour to an hour prior to your antibiotic. Prescriptions: Cephalexin Mh 500 mg [Keflex 500 mg] 500 mg PO TID #15 cap
[2024-12-15 12:28] VITALS: TEMP 97
[2024-12-15 12:41] LABS: Appearance Turbid (Clear); Bacteria Rare /HPF (None Seen); Bilirubin Negative (Negative); Blood Negative (Negative); Epithelial Cells Moderate /HPF (None Seen); Glucose, Urine >=1000 mg/dL (Negative); Hyaline Casts NONE SEEN /LPF (0-2); Ketones Negative (Negative); Leukocyte Esterase Negative (Negative); Nitrite Negative (Negative); Protein,Urine Dip Trace (Negative); Specific Gravity 1.025 (1.005-1.030)
[2024-12-15 13:08] VITALS: RESP 20
[2024-12-15 13:27] LABS: Absolute Neutrophil Ct (ANC) 7.87 x10^3/uL (1.56-6.13); BASOPHIL % 0.3 % (0.1-1.2); Basophil (Absolute #) 0.03 x10^3/uL (0.01-0.08); Eosinophil % 2.2 % (0.7-5.8); Eosinophil (Absolute #) 0.22 x10^3/uL (0.04-0.36); Hematocrit 31.9 % (34.1-44.9); Hemoglobin 10.8 g/dL (11.2-15.7); IMMATURE GRAN # 0.07 x10^3u/L (0.001-0.031); IMMATURE GRAN % 0.7 % (0.001-0.429); Lymphocyte (Absolute #) 1.15 x10^3/uL (1.18-3.74); Lymphocytes % 11.6 % (19.3-51.7); Mean Cell Volume 94.1 fL (79.4-94.8); Mean Corpuscular Hemoglobin 31.9 pg (25.6-32.2); Mean Corpuscular Hgb Concent. 33.9 g/dL (32.2-35.5); Monocyte (Absolute #) 0.57 x10^3/uL (0.24-0.86); Monocytes % 5.8 % (4.7-12.5); Neutrophil % 79.4 % (34.0-71.1); Platelet Count 288 x10^3/uL (182-369); Red Blood Count 3.39 x10^6/uL (3.93-5.22); Red Cell Distribution Width 13.2 % (11.7-14.4); White Blood Count 9.9 x10^3/uL (3.98-10.04)
[2024-12-15 13:30] LABS: ANION GAP 15.5 MEQ/L (5-15); Calcium 8.9 mg/dL (8.4-10.2); Creatinine 1 0.4 mg/dL (0.52-1.04); EST GLOMERULAR FILTRATION RATE 141.7 ML/MIN; Potassium 3.3 mmol/L (3.5-5.1)
[2024-12-15] MEDS ORDERED: KEFLEX 500 MG ONE (13:50)
[2024-12-15] MEDS ORDERED: ZOFRAN ODT 4 MG ONE (13:50)
[2024-12-15] MEDS: KEFLEX 500 MG PO ONE (13:51)
[2024-12-15] MEDS: ZOFRAN ODT 4 MG PO ONE (13:51)
[2024-12-15 14:11] VITALS: BP 98/61; PULSE 70; O2SAT 98
== END 2024-12-15 14:15 | disposition home or self-care (01) ==
LOC: ED 12:13
DX: R35.0 Frequency of micturition (principal); R30.0 Dysuria; R82.71 Bacteriuria; R82.81 Pyuria; R21 Rash and other nonspecific skin eruption; Z33.1 Pregnant state, incidental; Z79.899 Other long term (current) drug therapy; Z72.0 Tobacco use
CPT/HCPCS: 36415; 80048; 81001; 85025; 99283; Q0162; A9270-GY

== ENCOUNTER 2024-12-24 13:15 | Observation (INO) | payer OTHER ==
[2024-12-24 13:42] LABS: Appearance Clear (Clear); Bacteria None Seen /HPF (None Seen); Bilirubin Negative (Negative); Blood Moderate (Negative); Epithelial Cells None Seen /HPF (None Seen); Glucose, Urine Negative (Negative); Hyaline Casts NONE SEEN /LPF (0-2); Ketones Trace (Negative); Leukocyte Esterase Negative (Negative); Nitrite Negative (Negative); Protein,Urine Dip 30 (Negative); RBC >100 /HPF (0-5)
[2024-12-24] MEDS: ROCEPHIN 1 GM / 100 ML NaCl 1 GM/100 ML IVPB IV SCH (14:21)
[2024-12-24 14:26] VITALS: BP 94/52; PULSE 77; RESP 18; TEMP 98.5
[2024-12-24 14:35] LABS: Creatinine, Urine Random 129.9 mg/dl; Protein Creatinine Ratio, Ran. 0.48 mg/mg (0.0-0.15)
== END 2024-12-24 15:30 | disposition home or self-care (01) ==
LOC: LAB 13:15 → OB 14:00
PROVIDERS: ADMIT Obstetrics & Gynecology; ATTEND Obstetrics & Gynecology
DX: Z34.83 Encounter for supervision of other normal pregnancy, third trimester (principal); Z3A.29 29 weeks gestation of pregnancy
CPT/HCPCS: 81001; 82570; 84156; 87086; G0378; J0696

== ENCOUNTER 2025-03-03 02:00 | Inpatient (IN) | payer OTHER ==
[2025-03-03] MEDS ORDERED: Nubain 10 MG/ML IV PRN (08:00)
[2025-03-03 08:37] LABS: BASOPHIL % 0.5 % (0.1-1.2); Basophil (Absolute #) 0.05 x10^3/uL (0.01-0.08); Eosinophil (Absolute #) 0.08 x10^3/uL (0.04-0.36); Hematocrit 32.7 % (34.1-44.9); Hemoglobin 11.0 g/dL (11.2-15.7); IMMATURE GRAN # 0.04 x10^3u/L (0.001-0.031); IMMATURE GRAN % 0.4 % (0.001-0.429); Lymphocyte (Absolute #) 2.12 x10^3/uL (1.18-3.74); Mean Corpuscular Hemoglobin 30.6 pg (25.6-32.2); Mean Corpuscular Hgb Concent. 33.6 g/dL (32.2-35.5); Monocyte (Absolute #) 0.92 x10^3/uL (0.24-0.86); NUCLEATED RBC # 0.00 x10^3u/L (0.00-0.012); NUCLEATED RBC % 0.0 % (0.00-0.2); Platelet Count 238 x10^3/uL (182-369); Red Blood Count 3.60 x10^6/uL (3.93-5.22); White Blood Count 10.1 x10^3/uL (3.98-10.04)
[2025-03-03 09:39] LABS: Amphetamine,Urine NEGATIVE (NEGATIVE); Barbiturate,Urine NEGATIVE (NEGATIVE); Benzodiazepine,Urine NEGATIVE (NEGATIVE); Cocaine,Urine NEGATIVE (NEGATIVE); Methadone,Urine NEGATIVE (NEGATIVE); Opiate,Urine NEGATIVE (NEGATIVE); PCP,Urine NEGATIVE (NEGATIVE); THC,Urine NEGATIVE (NEGATIVE)
[2025-03-03 09:53] LABS: ABO TYPING A; RH TYPING POSITIVE
[2025-03-03 17:22] LABS: AMNISURE TEST RESULTS NEGATIVE (NEGATIVE)
[2025-03-03] MEDS ORDERED: STADOL 2 MG IV ONE (17:47)
[2025-03-03] MEDS: STADOL 2 MG IV PRN (17:54)
[2025-03-03] MEDS: Lactated Ringers 1,000 ML IV ONE (18:36)
[2025-03-03] MEDS: Lactated Ringers 1,000 ML IV SCH (18:37)
[2025-03-03] MEDS: FENTANYL 2 MCG-BUPIV 0.125%-NS 250 ML Epidur 250 ML EPIDURAL SCH (18:44)
[2025-03-04] MEDS: Zofran 4 MG/2 ML VIAL IV PRN (00:06)
[2025-03-04] MEDS: Ephedrine Sulfate 50 MG/ML IV PRN (00:53)
[2025-03-04] MEDS: PITOCIN 30 UNITS/ LR 500 ML 30 UNITS/500 ML PLAST..BAG IV SCH (06:27)
[2025-03-04 07:50] VITALS: RESP 18
[2025-03-04] MEDS ORDERED: Dulcolax 10 MG SUPP PR PRN (14:39)
[2025-03-04] MEDS: MOTRIN 400 MG PO PRN (15:54)
[2025-03-04] MEDS: Dermoplast Spray TP PRN (15:55)
[2025-03-04] MEDS: XYLOCAINE 1% HCL 20 ML MDV IJ PRN (15:55)
[2025-03-04] MEDS ORDERED: TUCKS TP ONE (16:03)
[2025-03-04] MEDS: TUCKS TP PRN (16:57)
[2025-03-04] MEDS: TYLENOL EXTRA STRENGTH 500 MG PO PRN (21:52)
[2025-03-05 05:13] LABS: BASOPHIL % 0.2 % (0.1-1.2); Basophil (Absolute #) 0.03 x10^3/uL (0.01-0.08); Eosinophil (Absolute #) 0.07 x10^3/uL (0.04-0.36); Hematocrit 26.7 % (34.1-44.9); Hemoglobin 8.7 g/dL (11.2-15.7); IMMATURE GRAN # 0.07 x10^3u/L (0.001-0.031); IMMATURE GRAN % 0.5 % (0.001-0.429); Lymphocyte (Absolute #) 2.08 x10^3/uL (1.18-3.74); Mean Corpuscular Hemoglobin 30.4 pg (25.6-32.2); Mean Corpuscular Hgb Concent. 32.6 g/dL (32.2-35.5); Monocyte (Absolute #) 1.23 x10^3/uL (0.24-0.86); NUCLEATED RBC # 0.00 x10^3u/L (0.00-0.012); NUCLEATED RBC % 0.0 % (0.00-0.2); Platelet Count 171 x10^3/uL (182-369); Red Blood Count 2.86 x10^6/uL (3.93-5.22); White Blood Count 15.4 x10^3/uL (3.98-10.04)
[2025-03-05 07:21] LABS: RPR Non Reactive (Non Reactive)
--- NOTE | 2025-03-05 10:49 | PCM.NOTE ---
Date and Time: 03/05/25 1048 Subjective Assessment: ppd 1 sp pt resting in bed and doing well able to ambulate and tolerate diet vss afebrile abd; soft uterus; firm lochia; mild hgb; 8.7 a/p sp ppd 1 anticipate discharge tomorrow Objective Data Vital Signs: Vital Signs - 24 hr Temp Pulse Resp BP BP Pulse Ox 03/05/25 09:00 98.0 F 74 18 107/61 97 03/05/25 02:00 97.9 F 63 18 108/67 98 03/04/25 20:00 97.7 F 78 18 113/56 97 03/04/25 18:00 98.8 F 98 H 18 109/61 97 03/04/25 17:00 98.8 F 84 18 112/60 99 03/04/25 16:30 98.8 F 103 H 18 106/56 98 03/04/25 16:00 98.2 F 97 H 18 106/56 97 03/04/25 15:15 99.5 F 98 H 18 102/58 97 03/04/25 15:00 99.5 F 111 H 18 108/62 97 03/04/25 14:45 99.5 F 94 H 18 106/54 99 03/04/25 14:30 99.5 F 115 H 18 105/59 97 03/04/25 14:15 99.5 F 112 H 18 113/56 95 03/04/25 14:00 98.8 F 136 H 18 125/58 98 03/04/25 13:45 98.8 F 131 H 18 124/58 97 03/04/25 13:30 98.8 F 125 H 18 132/66 97 03/04/25 13:15 98.8 F 108 H 18 123/67 97 03/04/25 13:00 98.8 F 98 H 18 121/73 97 03/04/25 12:45 98.8 F 86 18 118/71 96 03/04/25 12:30 98.8 F 89 18 114/72 97 03/04/25 12:15 98.8 F 77 18 111/66 96 03/04/25 12:00 98.8 F 98 H 18 111/66 97 03/04/25 11:45 98.8 F 87 18 113/66 97 03/04/25 11:30 98.8 F 90 18 118/74 98 03/04/25 11:15 98.8 F 75 18 102/58 96 03/04/25 11:00 98.6 F 83 18 115/61 96 Pain Assessment - Last Documented Pain Intensity [Anterior/ 0 Posterior] Pain Intensity 3 Pain Scale Used 0-10 Pain Scale Intake and Output: Intake & Output 03/02/25 03/03/25 03/04/25 03/05/25 11:59 11:59 11:59 11:59 Intake Total 250 7726 1750 Output Total 2940 20 Balance 250 4786 1730 Weight 72.575 kg Lab Results: Lab Results-Last 24 Hours 03/03/25 03/05/25 Range/Units 08:21 04:22 WBC 15.4 H (3.98-10.04) x10^3/uL RBC 2.86 L (3.93-5.22) x10^6/uL Hgb 8.7 L D (11.2-15.7) g/dL Hct 26.7 L (34.1-44.9) % MCV 93.4 (79.4-94.8) fL MCH 30.4 (25.6-32.2) pg MCHC 32.6 (32.2-35.5) g/dL RDW 13.2 (11.7-14.4) % Plt Count 171 L (182-369) x10^3/uL MPV 11.4 (9.4-12.3) fL Gran % 77.3 H (34.0-71.1) % Immature Gran % (Auto) 0.5 H (0.001-0.429) % Nucleat RBC Rel Count 0.0 (0.00-0.2) % Eos # (Auto) 0.07 (0.04-0.36) x10^3/uL Immature Gran # (Auto) 0.07 H (0.001-0.031) x10^3u/L Absolute Lymphs (auto) 2.08 (1.18-3.74) x10^3/uL Absolute Monos (auto) 1.23 H (0.24-0.86) x10^3/uL Absolute Nucleated RBC 0.00 (0.00-0.012) x10^3u/L Lymphocytes % 13.5 L (19.3-51.7) % Monocytes % 8.0 (4.7-12.5) % Eosinophils % 0.5 L (0.7-5.8) % Basophils % 0.2 (0.1-1.2) % Absolute Granulocytes 11.96 H (1.56-6.13) x10^3/uL Basophils # 0.03 (0.01-0.08) x10^3/uL RPR Non Reactive (Non Reactive) Medications: Medications Generic Name Dose Route Start Last Admin Trade Name Freq PRN Reason Stop Dose Admin Acetaminophen 1,000 mg 03/03/25 08:00 03/05/25 08:26 Acetaminophen 500 Mg Tablet PO 04/02/25 07:59 1,000 mg Q4H PRN PRN Administration HEADACHE/MILD PAIN/ FEVER Benzocaine 1 gm 03/04/25 14:39 03/04/25 15:55 Benzocaine/Lanolin/Aloe Vera 85 Gm Can TP 04/03/25 14:38 85 gm UD PRN Administration PAIN Bisacodyl 10 mg 03/04/25 14:39 Bisacodyl 10 Mg Supp.Rect GA 04/03/25 14:38 PRN PRN CONSTIPATION Docusate Sodium 100 mg 03/04/25 22:00 Docusate Sodium 100 Mg Capsule PO 04/03/25 21:59 BID ALISHA FENTANYL/BUPIVACAINE/NS/PF 250 mls @ 0 mls/hr 03/03/25 18:45 03/04/25 12:25 Fentanyl 2 Mcg-Bupiv 0.125%-Ns 250 Ml Epidur EPIDURAL 04/02/25 18:44 12 mls/hr .Q0M ALISHA Administration Protocol Titrate Ibuprofen 800 mg 03/04/25 14:39 03/04/25 23:46 Ibuprofen 400 Mg Tablet PO 04/03/25 14:38 800 mg Q6H PRN PRN Administration MODERATE PAIN Polysaccharide Iron Complex 150 mg 03/05/25 10:00 Iron Polysaccharides Complex 150 Mg Capsule PO 04/04/25 09:59 DAILY ALISHA Cornelia Cummins 40 pad 03/04/25 16:42 03/04/25 16:57 Wittrisha Cummins 1 Pad Med..Pad TP 04/03/25 16:41 1 pad PRN PRN Administration laceration Discontinued Medications Generic Name Dose Route Start Last Admin Trade Name Freq PRN Reason Stop Dose Admin Butorphanol Tartrate 1 mg 03/03/25 08:00 03/03/25 17:54 Butorphanol Tartrate 2 Mg/Ml Vial IV 04/02/25 07:59 1 mg Q4H PRN PRN Administration MODERATE PAIN Butorphanol Tartrate 1 mg 03/03/25 17:47 Butorphanol Tartrate 2 Mg/Ml Vial IV 03/03/25 17:48 STAT ONE Diphtheria/Tetanus/Acell Pertussis 0.5 ml 03/05/25 10:38 Tdap --Diph,Pertuss(Acell),Tet Vac/Pf 0.5 Ml Vial IM 03/05/25 10:39 .ONCE ONE Ephedrine Sulfate 10 mg 03/04/25 00:52 03/04/25 01:13 Ephedrine Sulfate 50 Mg/Ml IV 04/03/25 00:51 10 mg PRN PRN Administration SBP<100 Lactated Ringer's 1,000 mls @ 125 mls/hr 03/03/25 08:00 03/04/25 09:43 Lactated Ringers IV 04/02/25 07:59 125 mls/hr .Q8H ALISHA Administration Lactated Ringer's 1,000 mls @ 999 mls/hr 03/03/25 18:32 03/03/25 18:36 Lactated Ringers IV 03/03/25 19:32 999 mls/hr .Q1H1M ONE Administration Oxytocin/Lactated Ringer's 30 units in 500 mls @ 5 mls/hr 03/04/25 06:30 03/04/25 06:27 Pitocin 30 Units/ Lr 500 Ml IV 04/03/25 06:29 5 mls/hr .Q24H ALISHA Administration Lidocaine HCl 10 ml 03/03/25 08:00 03/04/25 15:55 Lidocaine Hcl 1% 20 Ml Mdv 20 Ml Ml IJ 04/02/25 07:59 10 ml PRN PRN Administration PAIN Measles/Mumps/Rubella Vaccine Live 0.5 ml 03/05/25 10:38 Measles,Mumps&Rubella Vacc/Pf* 0.5 Ml Vial SQ 03/05/25 10:39 .ONCE ONE Misoprostol 25 mcg 03/03/25 09:00 07/27/25 13:00 Misoprostol 25 Mcg ("08/11") Tab INTRAVAGIN 04/02/25 08:59 25 mcg Q4H ALISHA Administration Nalbuphine HCl 5 - 10 mg 03/03/25 08:00 Nalbuphine Hcl 10 Mg/Ml Ampul IV 04/02/25 07:59 Q4H PRN PRN PAIN Ondansetron HCl 4 mg 03/03/25 08:00 03/04/25 00:06 Ondansetron Hcl 4 Mg/2 Ml Vial IV 04/02/25 07:59 4 mg Q4H PRN PRN Administration NAUSEA/VOMITING Wittrisha Cummins Confirm 03/04/25 16:03 Cornelia Cummins 1 Pad Med..Pad Administered 03/04/25 16:04 Dose 1 pad TP .STK-MED ONE Assessment/Plan (1) Vaginal delivery Current Visit: Yes Status: Acute Code(s): O80 - ENCOUNTER FOR FULL-TERM UNCOMPLICATED DELIVERY
[2025-03-05] MEDS: FERREX 150 PO SCH (12:09)
[2025-03-05] MEDS: Docusate Sodium 100 MG PO SCH (12:09)
[2025-03-05] MEDS ORDERED: LASIX 20 MG PO ONE (15:15)
--- NOTE | 2025-03-06 07:30 | PCM.NOTE ---
Date and Time: 03/06/25727 Subjective Assessment: ppd 2 sp pt resting in bed and doing well able to ambulate and tolerate diet vss afebrile abd; soft uterus; firm lochia; mild hgb; 8.7 a/p sp ppd 2 dc home today should fu office in 3wks Objective Data Vital Signs: Vital Signs - 24 hr Temp Pulse Resp BP Pulse Ox 03/06/25 03:00 98.2 F 80 18 109/62 97 03/05/25 21:00 98.4 F 68 18 102/62 98 03/05/25 15:00 98.1 F 77 18 107/63 98 03/05/25 09:00 98.0 F 74 18 107/61 97 Pain Assessment - Last Documented Pain Intensity [Anterior/ 5 Posterior] Pain Intensity 2 Pain Scale Used 0-10 Pain Scale Intake and Output: Intake & Output 03/03/25 03/04/25 03/05/25 03/06/25 11:59 11:59 11:59 11:59 Intake Total 250 7726 1750 1000 Output Total 2940 20 Balance 250 4786 1730 1000 Weight 72.575 kg Medications: Medications Generic Name Dose Route Start Last Admin Trade Name Freq PRN Reason Stop Dose Admin Acetaminophen 1,000 mg 03/03/25 08:00 03/05/25 17:50 Acetaminophen 500 Mg Tablet PO 04/02/25 07:59 1,000 mg Q4H PRN PRN Administration HEADACHE/MILD PAIN/ FEVER Benzocaine 1 gm 03/04/25 14:39 03/04/25 15:55 Benzocaine/Lanolin/Aloe Vera 85 Gm Can TP 04/03/25 14:38 85 gm UD PRN Administration PAIN Bisacodyl 10 mg 03/04/25 14:39 Bisacodyl 10 Mg Supp.Rect SC 04/03/25 14:38 PRN PRN CONSTIPATION Docusate Sodium 100 mg 03/04/25 22:00 03/05/25 19:29 Docusate Sodium 100 Mg Capsule PO 04/03/25 21:59 100 mg BID ALISHA Administration Ibuprofen 800 mg 03/04/25 14:39 03/06/25 01:04 Ibuprofen 400 Mg Tablet PO 04/03/25 14:38 800 mg Q6H PRN PRN Administration MODERATE PAIN Polysaccharide Iron Complex 150 mg 03/05/25 10:00 03/05/25 12:09 Iron Polysaccharides Complex 150 Mg Capsule PO 04/04/25 09:59 150 mg DAILY ALISHA Administration Wittrisha Cummins 40 pad 03/04/25 16:42 03/05/25 18:25 Cornelia Cummins 1 Pad Med..Pad TP 04/03/25 16:41 40 pad PRN PRN Administration laceration Discontinued Medications Generic Name Dose Route Start Last Admin Trade Name Massimoq PRN Reason Stop Dose Admin Butorphanol Tartrate 1 mg 03/03/25 08:00 03/03/25 17:54 Butorphanol Tartrate 2 Mg/Ml Vial IV 04/02/25 07:59 1 mg Q4H PRN PRN Administration MODERATE PAIN Butorphanol Tartrate 1 mg 03/03/25 17:47 Butorphanol Tartrate 2 Mg/Ml Vial IV 03/03/25 17:48 STAT ONE Diphtheria/Tetanus/Acell Pertussis 0.5 ml 03/05/25 10:38 Tdap --Diph,Pertuss(Acell),Tet Vac/Pf 0.5 Ml Vial IM 03/05/25 10:39 .ONCE ONE Ephedrine Sulfate 10 mg 03/04/25 00:52 03/04/25 01:13 Ephedrine Sulfate 50 Mg/Ml IV 04/03/25 00:51 10 mg PRN PRN Administration SBP<100 Furosemide 20 mg 03/05/25 15:15 Furosemide 20 Mg Tablet PO 03/05/25 15:16 ONCE ONE Lactated Ringer's 1,000 mls @ 125 mls/hr 03/03/25 08:00 03/04/25 09:43 Lactated Ringers IV 04/02/25 07:59 125 mls/hr .Q8H ALISHA Administration Lactated Ringer's 1,000 mls @ 999 mls/hr 03/03/25 18:32 03/03/25 18:36 Lactated Ringers IV 03/03/25 19:32 999 mls/hr .Q1H1M ONE Administration FENTANYL/BUPIVACAINE/NS/PF 250 mls @ 0 mls/hr 03/03/25 18:45 03/04/25 12:25 Fentanyl 2 Mcg-Bupiv 0.125%-Ns 250 Ml Epidur EPIDURAL 04/02/25 18:44 12 mls/hr .Q0M ALISHA Administration Protocol Titrate Oxytocin/Lactated Ringer's 30 units in 500 mls @ 5 mls/hr 03/04/25 06:30 03/04/25 06:27 Pitocin 30 Units/ Lr 500 Ml IV 04/03/25 06:29 5 mls/hr .Q24H ALISHA Administration Lidocaine HCl 10 ml 03/03/25 08:00 03/04/25 15:55 Lidocaine Hcl 1% 20 Ml Mdv 20 Ml Ml IJ 04/02/25 07:59 10 ml PRN PRN Administration PAIN Measles/Mumps/Rubella Vaccine Live 0.5 ml 03/05/25 10:38 Measles,Mumps&Rubella Vacc/Pf* 0.5 Ml Vial SQ 03/05/25 10:39 .ONCE ONE Misoprostol 25 mcg 03/03/25 09:00 03/03/25 13:00 Misoprostol 25 Mcg ("1/4") Tab INTRAVAGIN 04/02/25 08:59 25 mcg Q4H ALISHA Administration Nalbuphine HCl 5 - 10 mg 03/03/25 08:00 Nalbuphine Hcl 10 Mg/Ml Ampul IV 04/02/25 07:59 Q4H PRN PRN PAIN Ondansetron HCl 4 mg 03/03/25 08:00 03/04/25 00:06 Ondansetron Hcl 4 Mg/2 Ml Vial IV 04/02/25 07:59 4 mg Q4H PRN PRN Administration NAUSEA/VOMITING Witch Maria G Confirm 03/04/25 16:03 Witch Maria G 1 Pad Med..Pad Administered 03/04/25 16:04 Dose 1 pad TP .STK-MED ONE Assessment/Plan (1) Vaginal delivery Current Visit: Yes Status: Acute Code(s): O80 - ENCOUNTER FOR FULL-TERM UNCOMPLICATED DELIVERY
--- NOTE | 2025-03-06 07:35 | PCM.DS ---
Discharge Summary Date of Admission: 03/04/25 02:00 Admitting Physician: STEPHANIE WALDROP DO Consults: Consults on Case 03/04/25 14:39 Notify Physician ROUTINE 03/05/25 07:51 Navigation ONCE Primary Care Provider: PING BARNARD HIRAM Allergies Allergies ciprofloxacin Allergy (Verified 02/18/25 15:33) Hives peach Allergy (Verified 02/18/25 15:33) Swelling of Face sulfamethoxazole [From Bactrim] Allergy (Verified 02/18/25 15:33) Hives trimethoprim [From Bactrim] Allergy (Verified 02/18/25 15:33) [facility] Summary - Hospital Course Hospital Course: pt admitted on march 03 at 39 1/7 wks gestation with hx of gdm on metformin 2000mg a day for induction with vaginal cytotec and recieved 3 doses and was chana adequately recieving her epidural on march 03 and subsequently started on pitocin on march 04 and delivered live baby boy without complication and had a 2nd degree tear repaired with 2-0 chromic suture. during ppd 1 doing well was noted having continued labial swelling and was given one dose of lasix 20mg po and was also noted having a hgb of 8.7 however minimal vaginal bleeding noted. pt able to ambulate and tolerate diet and at this time stable for discharge and was advised to fu in office in 3 wks. all questions answered to her satisfaction. pt advised to take iron supplementation bid as is going to be prescribed to her. - Vitals & Intake/Output Vital Signs: Vital Signs Temperature 98.2 F 03/06/25 03:00 Pulse Rate 80 03/06/25 03:00 Respiratory Rate 18 03/06/25 03:00 Blood Pressure 109/62 03/06/25 03:00 O2 Sat by Pulse Oximetry 97 03/06/25 03:00 Intake & Output: Intake & Output 03/03/25 03/04/25 03/05/25 03/06/25 11:59 11:59 11:59 11:59 Intake Total 250 7726 1750 1000 Output Total 2940 20 Balance 250 4786 1730 1000 Weight 72.575 kg - Lab Result Diagrams: 03/05/25 04:22 Micro Results-Entire Visit: Microbiology 03/03/25 20:15 Urine Culture - Final Catherized NO GROWTH Final Diagnosis/Problem List - Final Discharge Diagnosis/Problem (1) Vaginal delivery Current Visit: Yes Status: Acute Code(s): O80 - ENCOUNTER FOR FULL-TERM UNCOMPLICATED DELIVERY - Discharge Disposition: Home, Self-Care Condition: Stable Prescriptions: No Action Omeprazole 20 mg PO DAILY Pnv 119/Iron Fum/Folic Acid [ 19 Tablet] 1 ea PO DAILY Metformin HCl 500 mg [Glucophage 500 MG] 2,000 mg PO DAILY Follow up with: PING BARNARD MD [Primary Care Provider, [facility]] STEPHANIE WALDROP DO [ACTIVE STAFF, OBSTETRICS-GYNECOLOGY] - 3 weeks Referral Note: should fu in office in 3 wks should call me for any issues that may arise upon discharge
[2025-03-06] MEDS: Adacel Vial IM ONE (10:50)
[2025-03-06] MEDS: M-M-R II Vaccine With Diluent SQ ONE (10:54)
[2025-03-06 13:06] VITALS: BP 110/55; PULSE 59; TEMP 98.9; O2SAT 99
== END 2025-03-06 12:50 | disposition home or self-care (01) | DRG 807 ==
LOC: OB 02:00 → OBSVTOIN 03-04 02:00
PROVIDERS: ADMIT Obstetrics & Gynecology; ATTEND Obstetrics & Gynecology
PROC: 10E0XZZ Delivery of Products of Conception, External Approach (ICD-10-PCS; principal; 2025-03-04)
PROC: 0KQM0ZZ Repair Perineum Muscle, Open Approach (ICD-10-PCS; 2025-03-04)
DX: O70.1 Second degree perineal laceration during delivery (principal); Z37.0 Single live birth; O24.429 Gestational diabetes mellitus in childbirth, unspecified control; Z3A.39 39 weeks gestation of pregnancy

== ENCOUNTER 2025-06-25 23:51 | Emergency (ER) | payer OTHER ==
[2025-06-26 00:08] VITALS: TEMP 98.1
[2025-06-26] MEDS ORDERED: DECADRON 10MG INJ. ONE (00:26)
[2025-06-26] MEDS ORDERED: TORAdol 30 mg Injection ONE (00:26)
--- NOTE | 2025-06-26 00:27 | ERPHSYRPT ---
- History of Present Illness Time Seen by Provider: 06/26/25 00:22 Source: patient Exam Limitations: no limitations Patient Subjective Stated Complaint: pt reports approx 45 mins ago she bent over and when she stood to begin walking she experienced sharp lower back pain that radiates to her hips and tailbone. pt denies any injury or accident. denies history of back pain or trauma. Triage Nursing Assessment: pt is aox3, pupils perrl, afebrile, resps easy and non labored, cap refill < 3 seconds, radial pulses strong and equal, pt skin pink warm dry. pt is able to stand and pivot, pt sensation and ROM intact. Physician History: Patient is a 24-year-old female 3 months via spontaneous vaginal delivery presents to our ED for evaluation of low back pain that occurred approximately 45 minutes ago while she was bending over. Patient states she was bending forward stood up began to take a step and felt pain to her low back. Pain described as a sharp sensation that radiated across to her hips. No trauma no fever. No saddle anesthesia. No change in bowel bladder function. No fever no recent back procedure. Pain is reproduced with movement. Pain worse with bending forward. Pain improves with rest or lying flat. Patient otherwise feels well. Patient voices no other complaints or concerns at this time. Portions of this note were created with voice recognition technology. There may be grammatical, spelling, punctuation or sound alike errors Timing/Duration: today Method of Injury: bending Quality: sharp Back Pain Location: lumbar spine Severity of Pain-Max: moderate Severity of Pain-Current: mild Modifying Factors: Improves With: movement Associated Symptoms: denies symptoms Previous symptoms: no prior history Allergies/Adverse Reactions: ciprofloxacin Allergy (Verified 06/25/25 23:55) Hives peach Allergy (Verified 06/25/25 23:55) Swelling of Face sulfamethoxazole [From Bactrim] Allergy (Verified 06/25/25 23:55) Hives trimethoprim [From Bactrim] Allergy (Verified 06/25/25 23:55) Hives Home Medications: Omeprazole 20 mg PO DAILY 12/15/24 [History] Clonazepam [Klonopin] 0.5 mg PO UD 06/26/25 [History] Hx Tetanus, Diphtheria Vaccination/Date Given: Yes Hx Influenza Vaccination/Date Given: No Hx Pneumococcal Vaccination/Date Given: No Immunizations Up to Date: Yes Travel Risk - International Travel Have you traveled outside of the country in past 3 weeks: No - Emerging Infectious Disease Are you exhibiting symptoms associated with any current EIDs: No Symptoms: Cough: New Onset - Review of Systems All Other Systems: Reviewed and Negative - Past Medical History Pertinent Past Medical History: No Neurological History: No Pertinent History ENT History: No Pertinent History Cardiac History: No Pertinent History Respiratory History: No Pertinent History Endocrine Medical History: No Pertinent History Musculoskeletal History: No Pertinent History GI Medical History: No Pertinent History History: No Pertinent History Psycho-Social History: No Pertinent History Female Reproductive Disorders: No Pertinent History, Other Other Medical History: borderline personality disorder - Past Surgical History Past Surgical History: Yes Neuro Surgical History: No Pertinent History Cardiac: No Pertinent History Respiratory: No Pertinent History Gastrointestinal: No Pertinent History Genitourinary: No Pertinent History Musculoskeletal: No Pertinent History Female Surgical History: Dilation & Curettage Other Surgical History: D&C x2 Significant Family History: no pertinent family hx - Female History Hx Last Menstrual Period: 06/12/25 Hx Now: No - Social History Smoking Status: Never smoker Exposure to second hand smoke: No Drug Use: none - Social Determinants of Health Will the patient participate in the screening: Yes Do you worry about a steady place to live?: No Do you have any problems with any of the following?: No known problems In the past 12 months,have you had to go without utilities?: No Transportation Issues: No Has anyone in your support network made you feel unsafe?: No Have you or anyone in your house had to go w/o enough food: No - Nursing Vital Signs Nursing Vital Signs: Initial Vital Signs Temperature 98.1 F 06/25/25 23:57 Pulse Rate 66 06/25/25 23:57 Respiratory Rate 18 06/25/25 23:57 Blood Pressure 110/69 06/25/25 23:57 O2 Sat by Pulse Oximetry 99 06/25/25 23:57 Pain Scale Pain Intensity 7 - Physical Exam General Appearance: no apparent distress, alert Eye Exam: PERRL/EOMI, eyes nml inspection Neck Exam: normal inspection, supple, full range of motion, No meningismus, No midline tenderness Respiratory Exam: normal breath sounds, lungs clear, airway intact, No respiratory distress Cardiovascular Exam: regular rate/rhythm, normal heart sounds, normal peripheral pulses Gastrointestinal Exam: soft, No tenderness, No mass Back Exam: other (Tenderness palpation at both SI joints. Overlying soft tissue intact. 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, normal mood/affect, sensation nml, No motor deficits Skin Exam: normal color, warm, dry, No rash SpO2 Interpretation: normal SpO2: 98 O2 Delivery: Room Air - Course Nursing assessment & vital signs reviewed: Yes Ordered Tests: Active Orders 24 hr Category Date Time Status CULTURE,URINE Stat Lab 06/26/25 00:05 Received UA W/RFX UR CULTURE Stat Lab 06/26/25 00:05 Completed Medication Summary Discontinued Medications Generic Name Dose Route Start Last Admin Trade Name Freq PRN Reason Stop Dose Admin Dexamethasone Sodium Phosphate 8 mg 06/26/25 00:21 06/26/25 00:30 Dexamethasone Sod Phosphate 10 Mg/Ml IM 06/26/25 00:22 8 mg STAT ONE Administration Dexamethasone Sodium Phosphate Confirm 06/26/25 00:26 Dexamethasone Sod Phosphate 10 Mg/Ml Administered 06/26/25 00:27 Dose 10 mg .ROUTE .STK-MED ONE Ketorolac Tromethamine 30 mg 06/26/25 00:21 06/26/25 00:29 Ketorolac Tromethamine 30 Mg/Ml Inj IM 06/26/25 00:22 30 mg STAT ONE Administration Ketorolac Tromethamine Confirm 06/26/25 00:26 Ketorolac Tromethamine 30 Mg/Ml Inj Administered 06/26/25 00:27 Dose 30 mg .ROUTE .STK-MED ONE Lab/Rad Data: Laboratory Results 06/26/25 Range/Units 00:05 Urine Color Yellow (Yellow) Urine Appearance Clear (Clear) Urine pH 5.5 (4.6-8.0) Ur Specific [place] 1.025 (1.005-1.030) Urine Protein Negative (Negative) Urine Glucose (UA) Negative (Negative) mg/dL Urine Ketones Negative (Negative) Urine Blood Trace (Negative) Urine Nitrite Negative (Negative) Urine Bilirubin Negative (Negative) Urine Urobilinogen 1.0 A (0.2) mg/dL Ur Leukocyte Esterase Negative (Negative) U Hyaline Cast (Auto) NONE SEEN (0-2) /LPF Urine Microscopic RBC 0-2 (0-5) /HPF Urine Microscopic WBC 6-10 A (0-5) /HPF Ur Epithelial Cells Rare (None Seen) /HPF Urine Bacteria Moderate A (None Seen) /HPF Urine Culture Reflexed YES (NO) - Progress Progress: improved Progress Note: Patient is a 24-year-old female 3 months via spontaneous vaginal delivery presents to our ED for evaluation of low back pain that occurred approximately 45 minutes ago while she was bending over. Patient states she was bending forward stood up began to take a step and felt pain to her low back. Physical exam reveals tenderness to palpation at SI joints. Palpation reproduces pain. No imaging study indicated at this time. Patient received dose of Decadron and Toradol. Pain significantly improved. UA significant for urinary tract infection. Patient received an oral dose of Macrobid in our ED. A prescription for Toradol and Macrobid forwarded to patient's pharmacy. Patien t reassessed. Pain improved. Patient states she is ready for discharge. She voices no other complaints or concerns at this time. Differential diagnosis includes UTI. Lumbosacral strain, sciatica History obtained from patient and significant other at bedside. Portions of this note were created with voice recognition technology. There may be grammatical, spelling, punctuation or sound alike errors Complexity of problems addressed is moderate acute complicated. No critical care time. Complexity of data reviewed and analyzed is moderate. Test ordered chest reviewed results analyzed and correlated clinically with history and physical exam. Risk of complication and or risk of morbidity/mortality of patient management is low. Vital stable. Time spent to discharge patient is approximately 15 minutes. Plan of care established for shared decision making. No social determinants of health present to impede follow-up. Portions of this note were created with voice recognition technology. There may be grammatical, spelling, punctuation or sound alike errors 06/26/25 01:40 Counseled pt/family regarding: lab results, diagnosis, need for follow-up - Departure Departure Disposition: Home Clinical Impression: Lumbosacral strain, UTI (urinary tract infection) Condition: Stable Critical Care Time: No Referrals: PING BARNARD MD [Primary Care Provider, [facility]] - Follow up/PCP as directed Additional Instructions: Discharge/Care Plan MERVAT MODI was seen on 06/26/25 in the Emergency Room. The patient was counseled regarding Diagnosis,Lab results, Imaging studies, need for follow up and when to return to the Emergency Room. Prescriptions given: Discharge Note I have spoken with the patient and/or caregivers. I have explained the patient's condition, diagnosis and treatment plan based on the information available to me at this time. I have answered the patient's and/or caregiver's questions and addressed any concerns. The patient and/or caregivers have as good understanding of the patient's diagnosis, condition and treatment plan as can be expected at this point. The vital signs have been stable. The patient's condition is stable and appropriate for discharge from the emergency department. The patient will pursue further outpatient evaluation with the primary care physician or other designated or consulting physician as outlined in the discharge instructions. The patient and/or caregivers are agreeable to this plan of care and follow-up instructions have been explained in detail. The patient and/or caregivers have received these instruction. The patient/and or caregivers are aware that any significant change in condition or worsening of symptoms should prompt an immediate return to this or the closest emergency department or call 911. Prescriptions: Nitrofurantoin Macro 100 mg [Macrobid 100MG Capsule] 100 mg PO BID 7 Days #14 cap Ketorolac Trometh 10 mg Tab [TORAdol 10 MG TABLET] 10 mg PO TID 5 Days #15 tablet
[2025-06-26 00:28] LABS: Glucose, Urine Negative (Negative); Protein,Urine Dip Negative (Negative); RBC 0-2 /HPF (0-5)
[2025-06-26] MEDS: TORAdol 30 mg Injection IM ONE (00:29)
[2025-06-26] MEDS: DECADRON 10MG INJ. IM ONE (00:30)
[2025-06-26 01:43] VITALS: O2SAT 98
[2025-06-26] MEDS: Macrobid 100MG Capsule PO ONE (01:44)
[2025-06-26] MEDS ORDERED: Macrobid 100MG Capsule ONE (01:44)
[2025-06-26 01:49] VITALS: BP 93/54; PULSE 79; RESP 17
== END 2025-06-26 02:00 | disposition home or self-care (01) ==
LOC: ED 23:51
DX: S39.012A Strain of muscle, fascia and tendon of lower back, initial encounter (principal); N39.0 Urinary tract infection, site not specified; Z79.899 Other long term (current) drug therapy